=== PATIENT | female | born 1995 | race Caucasian/White ===

== ENCOUNTER 2021-08-22 13:58 | Inpatient (IN) | payer MEDICARE, OTHER ==
[2021-08-22] MEDS ORDERED: OXYTOCIN 10 UNIT/ML 1 ML VIAL IM PRN (14:57)
[2021-08-22] MEDS ORDERED: AMPICILLIN 2,000 MG in SODIUM CHLORIDE 0.9% 100 ML IVPB STA (14:57)
[2021-08-22] MEDS ORDERED: METHYLERGONOVINE 0.2 MG/ML 1 ML AMP IM PRN (14:57)
[2021-08-22] MEDS ORDERED: CARBOPROST TROMETHAMINE 250 MCG/ML 1 ML AMP IM PRN (14:57)
[2021-08-22] MEDS ORDERED: LIDOCAINE 0.5% (PF) 5 MG/ML (50 ML SDV) SQ PRN (14:57)
[2021-08-22] MEDS ORDERED: TERBUTALINE 1 MG/ML VIAL SQ PRN (14:57)
[2021-08-22] MEDS ORDERED: OXYTOCIN 30 UNITS/500 ML NS 30 UNIT in SALINE 1 500ML.BAG IV SCH (15:00)
[2021-08-22 15:10] LABS: Appearance,Urine Clear (Clear); Bilirubin,Urine Negative (Negative); Blood,Urine Negative (Negative); Color,Urine Yellow; Glucose,Urine (UA) Negative (Negative); Ketones,Urine Negative (Negative); Leukocyte Esterase,Urine Moderate (Negative); Mucus,Urine Rare /hpf; Nitrite,Urine Negative (Negative); PH, Urine 6.5 (5.0-8.0); Protein,Urine Negative (Negative); RBC,Urine 2 /hpf (0-5); Specific Gravity,Urine 1.011 (1.001-1.035); Squamous Epithelial Cell,Urine <1 /hpf (0-4); Urobilinogen,Urine <2.0 mg/dL (<2.0); WBC,Urine 10 /hpf (0-5)
[2021-08-22 15:18] LABS: Amphetamine Screen,Urine Detected (NotDetected); Barbiturate Screen,Urine Not Detected (NotDetected); Benzodiazepines Screen,Urine Not Detected (NotDetected); Cocaine Screen,Urine Not Detected (NotDetected); Methadone Screen, Urine Not Detected (NotDetected); Opiate Screen,Urine Not Detected (NotDetected); Oxycodone Screen, Urine Not Detected (NotDetected); Phencyclidine Screen,Urine Not Detected (NotDetected); Tricyclic Antidepressant,Urine Not Detected (NotDetected); Urn Cannabinoid Scrn Detected (NotDetected)
[2021-08-22 16:01] LABS: Anisocytosis Moderate; Basophils % (A) 0 %; Eosinophils # (A) 0.2 k/uL (0-0.7); Eosinophils % (A) 2 %; HCT 30.5 % (34.0-46.0); HGB 10.2 gm/dL (11.4-16.0); Lymphocytes # (A) 1.6 k/uL (1.0-4.8); Lymphocytes % (A) 18 %; MCH 28.4 pg (25.0-35.0); MCHC 33.3 g/dL (31.0-37.0); MCV 85.1 fL (80.0-100.0); Mean Platelet Volume 7.3; Microcytosis Slight; Monocytes # (A) 0.4 k/uL (0-1.0); Monocytes % (A) 5 %; Neutrophils # (A) 6.7 k/uL (1.3-7.7); Neutrophils % (A) 75 %; Platelet Count 287 k/uL (150-450); Poikilocytosis Slight; RBC 3.58 m/uL (3.80-5.40); RDW 21.9 % (11.5-15.5)
[2021-08-22] MEDS: LACTATED RINGERS 1,000 ML IV SCH ×2 (16:52→17:19)
[2021-08-22] MEDS ORDERED: ROPIVACAINE 5MG/ML 20ML VIAL ONE (17:19)
[2021-08-22] MEDS ORDERED: fentaNYL (PF) 50 MCG/ML 5 ML AMP ONE (17:19)
[2021-08-22] MEDS ORDERED: SODIUM CHLORIDE 0.9% 100 ML BAG ONE (17:19)
--- NOTE | 2021-08-22 17:25 | P.HPOB ---
History of Present Illness H&P Date: 08/22/21 Chief Complaint: Intrauterine at term: Active labor: Substance abuse Danay is a 26-year-old at 37 weeks gestation who ryes in active labor. She relates that she and having contractions last night and they continued every 10 minutes. She is a patient of Dr. Shearer who is a maternal medicine specialist out of the [facility] for her substance abuse. She is on Suboxone. She denies other illicit drugs or alcohol. However, she is positive for amphetamines, methamphetamines and THC. She relates that she had no specific problems with the other than her opioid issue and she has a Bartholin's gland that has been present for last 2 pregnancies that has been draining off and on throughout the . She relates that at time it was tried to be treated with a catheter but that it did not work. It is relatively painful now and swollen but not nearly as bad as has been and she is on 2 separate antibiotics but she does not know what the antibiotic's name are. Her tracing is reactive category 1. She is lena semi-irregular but she is making cervical change the last cervical check she was dilated to 7 cm at presentation she was dilated 6 cm. She has a bulging bag although she does relate that she is been leaking fluid and she did have positive amateur so is unclear how long she is actually been leaking fluid. She relates that she was supposed to have implant with her physician today but came here instead. It appears that her [facility] was late to start as she relates that she was earlier this year but had a miscarriage and then got and wasn't sure how far along she was and didn't seek care until approximately April. The pediatricians will be notified for delivery. Past medical history substance abuse Past surgical history cholecystectomy ALLERGIES none Social history assume for Suboxone use Family history is noncontributory Medications Suboxone On physical exam vital signs are stable and afebrile. Heart regular, lungs clear, extremities without pain. Grossly looking her abdomen she appears small for dates and I am waiting for medical records from her primary venipuncturist. She is dilated to 7 cm 90% effaced and -2 station. She is hopeful that she can get an epidural for analgesia. Intrauterine at 37 weeks per patient active labor Expect spontaneous vaginal delivery. With unknown group B strep status antibiotics are provided for group B strep prophylaxis Past Medical History Past Medical History: Asthma Additional Past Medical History / Comment(s): bartholian gland, restless leg s yndrome, anemia, durg use History of Any Multi-Drug Resistant Organisms: MRSA Date of last positivie culture/infection: 03/2021 MDRO Source:: neck Past Surgical History: Cholecystectomy Additional Past Surgical History / Comment(s): D&Cx2 Past Anesthesia/Blood Transfusion Reactions: No Reported Reaction Past Psychological History: No Psychological Hx Reported Smoking Status: Current every day smoker Past Alcohol Use History: None Reported Past Drug Use History: Marijuana, Prescription Drug Abuse - Past Family History Mother History Unknown: Yes Medications and Allergies Home Medications Medication Instructions Recorded Confirmed Type Buprenorphine HCl/Naloxone HCl 1 film PO DAILY 08/22/21 08/22/21 History [Suboxone 4 mg-1 mg Sl Film] Cephalexin [Keflex] 1 tab PO BID 08/22/21 08/22/21 History Gabapentin [Neurontin] 1 tab PO BID 08/22/21 08/22/21 History Iron 1 tab PO DAILY 08/22/21 08/22/21 History Ondansetron [Zofran] 1 tab PO DAILY 08/22/21 08/22/21 History Pnv No.95/Ferrous Fum/Folic AC 1 tab PO DAILY 08/22/21 08/22/21 History [ Multivitamin Tablet] Sulfamethox-Tmp 800-160Mg [Bactrim 1 tab PO BID 08/22/21 08/22/21 History DS 800-160 mg] Allergies Allergy/AdvReac Type Severity Reaction Status Date / Time No Known Allergies Allergy Verified 08/22/21 14:53 Exam Osteopathic Statement: *. No significant issues noted on an osteopathic structural exam other than those noted in the History and Physical/Consult. Vital Signs Temp Pulse Resp BP 08/22/21 15:19 97.4 F L 85 16 114/64 08/22/21 14:11 97.3 F L 85 16 114/64 Intake and Output 08/22/21 08/22/21 08/22/21 06:59 14:59 22:59 Other: Weight 68.039 kg 68.039 kg - OBG Physical Exam Breast: both: normal (no masses) Abdomen: bowel sounds normal, no diffuse tenderness, no bruit present, no guarding noted, no hepatomegaly, no splenomegaly, no mass Vulva: bartholin cyst noted. Vulva: both: normal Vagina: normal moisture, no discharge Cervix: no lesion, no discharge Uterus: normal size, normal contour Adnexa: both: normal Anus/Rectum: normal perianal skin, no rectal mass, no hemorrhoids, heme negative Results Result Diagrams: 08/22/21 15:49 Abnormal Lab Results - Last 24 Hours (Table) 08/22/21 08/22/21 08/22/21 Range/Units 13:50 13:50 15:49 RBC 3.58 L (3.80-5.40) m/uL Hgb 10.2 L (11.4-16.0) gm/dL Hct 30.5 L (34.0-46.0) % RDW 21.9 H (11.5-15.5) % Ur Leukocyte Esterase Moderate H (Negative) Urine WBC 10 H (0-5) /hpf Urine Mucus Rare H (None) /hpf Ur Amphetamines Screen Detected H (NotDetected) U Methamphetamines Scrn Detected H (NotDetected) U Marijuana (THC) Screen Detected H (NotDetected)
[2021-08-22] MEDS ORDERED: CITRIC ACID-SODIUM CITRATE 15 ML CUP PO ONE (18:06)
[2021-08-22] MEDS ORDERED: LACTATED RINGERS 1,000 ML IV ONE (18:06)
--- NOTE | 2021-08-22 18:17 | P.PN ---
Progress Note - Text Progress Note Date: 08/22/21 Madie's from retropubic medicine returned and she is positive for hepatitis C. She also relates that she has MRSA and throughout the records she is positive for methamphetamines and amphetamines. Had not done and a digital exam prior to this point as the nurses were doing exams, however I did make an attempt to do artificial rupture membranes as there was supposed to still be a membrane present. On exam immediately I recognized that there was something abnormal with the presentation with the presenting part still feeling firm but significantly anterior with soft tissue behind the presenting part posteriorly as this did not feel right and artificial membranes were not really able to be performed I suspected potential breech presentation so I did a bedside ultrasound and verified breech presentation. It is noted that the heart tones were low and what would ordinarily be considered a very normal position for vertex presentation. She is 8 cm dilated and we'll move forward with primary section. Risks/benefits/alternatives to this procedure were reviewed the patient in detail including but not limited to bleeding and infection, damage to bladder or bowel, vascular injuries, nerve injuries, ureteral injuries possible need further surgeries.
[2021-08-22] MEDS ORDERED: MIDAZOLAM 2 MG/2 ML VIAL ONE (18:18)
[2021-08-22] MEDS ORDERED: ONDANSETRON 4 MG/2 ML VIAL ONE (18:18)
[2021-08-22] MEDS ORDERED: OXYTOCIN 30 UNITS/500 ML NS BAG IV ONE (18:18)
[2021-08-22] MEDS ORDERED: KETOROLAC 15 MG/ML 1 ML VIAL ONE (18:18)
[2021-08-22] MEDS ORDERED: MORPHINE SULFATE (PF) 0.3 MG/0.3 ML SYR ONE (18:18)
[2021-08-22] MEDS ORDERED: AMPICILLIN 1,000 MG in SODIUM CHLORIDE 0.9% 50 ML IVPB SCH (19:00)
[2021-08-22] MEDS ORDERED: diphenhydrAMINE 25 MG CAP PO PRN (19:01)
[2021-08-22] MEDS ORDERED: NALOXONE 0.4 MG/ML 1 ML VIAL IV PRN (19:01)
[2021-08-22] MEDS ORDERED: diphenhydrAMINE 50 MG/ML 1 ML VIAL IVP PRN ×2 (19:01)
[2021-08-22] MEDS ORDERED: METOCLOPRAMIDE 5 MG/ML 2 ML VIAL IVP PRN (19:01)
[2021-08-22] MEDS ORDERED: diphenhydrAMINE 50 MG CAP PO PRN (19:01)
[2021-08-22] MEDS ORDERED: ZOLPIDEM 5 MG TAB PO PRN (19:01)
[2021-08-22] MEDS ORDERED: HYDROmorphone 0.5 MG/0.5 ML SYRINGE IVP PRN (19:11)
[2021-08-22] MEDS ORDERED: MEASLES-MUMPS-RUBELLA VACC/PF 12,500 UNIT/0.5 ML VIAL SQ ONE (19:11)
[2021-08-22] MEDS ORDERED: LACTATED RINGERS 1,000 ML IV SCH (19:15)
--- NOTE | 2021-08-22 19:49 | P.OP ---
Date of Procedure: 08/22/21 Preoperative Diagnosis: Intrauterine at term: Hepatitis see positive: Suboxone use: Breech presentation Postoperative Diagnosis: Same Procedure(s) Performed: Primary low transverse section Anesthesia: epidural Surgeon: Kevin Florez Clerical Assigner #1: Raegan Walden Estimated Blood Loss (ml): 900 IV fluids (ml): 700 Urine output (ml): 500 Pathology: other (Placenta) Condition: stable Disposition: floor Operative Findings: Female scores and weight are pending but mother and baby appear stable following delivery Description of Procedure: Danay was taken to the operating suite where a epidural anesthetic was found be adequate. She was prepped and draped in normal sterile fashion and placed in the dorsal supine position with leftward tilt. Initially a Pfannenstiel skin incision was made and carried through to the underlying layer fascia was second knife. Fascia was then nicked in the midline and this opening was extended laterally with Pearson scissors. Superior and inferior aspect of this incision were then grasped tented up and bluntly and sharply dissected off the rectus muscles. Rectus muscles were then divided midline and sharp dissection the peritoneum was performed. This opening was then extended superiorly and inferiorly with good visualization of both bowel bladder. Bladder blade was then placed and the bladder flap identified. It was entered sharply with Metzenbaum scissors and carried across face uterus. Bladder was then dissected out of the operative field. Knife was then used to incise the uterus and lower uterine segment. It was fully developed hemostat and then extended bluntly. Buttock was then easily delivered followed by the remainder the baby. Once baby was fully delivered mouth nares were bulb suctioned and the umbilical cord was clamped cut usual fashion. Nursery personnel was then present and did assume care. Placenta was then delivered intact Pitocin was added to the IV. Uterus was then exteriorized cleared of clots and debris and closed in 2 layers with 0 Vicryl suture. Once excellent hemostasis was obtained blood and debris was suctioned from the posterior cul-de-sac and the uterus was reinserted into the abdomen. Gutters were then cleared. Peritoneal layer was then reapproximated with 0 Vicryl suture. Fascial layer was closed with 0 Vicryl suture. Skin was then closed with 3-0 Vicryl subcuticularly. Sponge, lap, needle counts were all correct 2. Patient was then taken to the recovery room in stable and satisfactory condition.
[2021-08-22 20:48] LABS: ALT 32 U/L (4-34); AST 28 U/L (14-36); African American GFR (CKD) >90 (>60 ml/min/1.73 sqM); Albumin 2.6 g/dL (3.5-5.0); Alkaline Phosphatase 113 U/L (38-126); Anion Gap 6 mmol/L; Blood Urea Nitrogen 4 mg/dL (7-17); Calcium 8.5 mg/dL (8.4-10.2); Carbon Dioxide 18 mmol/L (22-30); Chloride 108 mmol/L (98-107); Glucose 87 mg/dL (74-99); Non-African American GFR(CKD) >90 (>60 ml/min/1.73 sqM); Potassium 3.5 mmol/L (3.5-5.1); Sodium 132 mmol/L (137-145); Total Bilirubin 0.2 mg/dL (0.2-1.3); Total Protein 5.5 g/dL (6.3-8.2)
[2021-08-22] MEDS ORDERED: CEPHALEXIN 500 MG CAP PO SCH (21:00)
[2021-08-22] MEDS ORDERED: SULFAMETHOX-TMP 800-160MG 1 EACH TAB PO SCH (21:00)
[2021-08-22] MEDS: SENNOSIDES-DOCUSATE SODIUM 1 EACH TAB PO SCH (21:10)
[2021-08-22 21:23] LABS: INR 0.9 (<1.2); Partial Thromboplastin Time 25.8 sec (22.0-30.0); Prothrombin Time 9.8 sec (9.0-12.0)
--- NOTE | 2021-08-22 22:26 | P.CONS ---
History of Present Illness - Reason for Consult Consult date: 08/22/21 - History of Present Illness The patient is a 26-year-old female postoperative day #0 status post section who is seen as a medicine consult. The patient has a past medical history of hepatitis C, HSV, polysubstance abuse including heroin with history of methadone use, currently on Suboxone. The patient reports that she is continuing to have 5 out of 10 pain at the surgical site at the time of interview. She denied any additional complaints. She reports that the last time she used any illicit substance was 6 months ago and the only substance she admits using currently at the Suboxone. She denied chest discomfort, fever, chills, cough, nausea, vomiting, diarrhea. The patient's laboratory evaluation was reviewed and was remarkable for hemoglobin of 10.2, sodium 132, CO2 18, BUN 4, creatinine 0.36, albumin 2.6, and urine toxicology positive for methamphetamines and marijuana. Review of systems: Pertinent positives and negatives as discussed in HPI, a complete review of systems was performed and all other systems are negative. Physical examination: General: non toxic, no distress, appears at stated age, overweight Derm: no unusual rashes/lesions no unusual ecchymoses, warm, dry Head: atraumatic, normocephalic, symmetric Eyes: EOMI, no lid lag, anicteric sclera, pupils equal round reactive to light ENT: Nose and ears atraumatic, no thrush, no pharyngeal erythema Neck: No thyromegaly, no cervical lymphadenopathy, trachea midline, supple Mouth: no lip lesion, mucus membranes moist Cardiovascular: S1S2 reg, no murmur, positive posterior tibial pulse bilateral, no edema, capillary refill less than 2 seconds Lungs: CTA bilateral, no rhonchi, no rales , no accessory muscle use Abdominal: soft, post-op abdomen w/ dressings in place, no guarding, no appreciable organomegaly Ext: no gross muscle atrophy, muscle strength 5 out of 5 in all 4 extremities grossly, no contractures, Neuro: CN II-XI grossly intact, light touch intact all 4 extremities, finger to nose within normal limits, Psych: Alert, oriented, appropriate affect Assessment/plan Chronic hepatitis C -Advised patient on the need to follow up as an outpatient with a patternmaker bench. -The patient reports that she previously had an appointment which she missed -Advised patient on newer therapies with high cure rates for hepatitis C Polysubstance abuse -Advised the patient on importance of cessation -The patient notes that she may have a friend bring her Suboxone into the hospital -Suboxone is not on the hospital formulary Hypoalbuminemia -Suspected due to poor nutritional status as patient's cognition studies are unremarkable -Thereby low suspicion for cirrhosis Status post section -No obvious contraindications noted with regards to opiates -Continue with morphine 4 mg every 4 hourly for now We appreciate this opportunity to be involved in this patient's care. We will follow the patient with you. For any further questions, please not hesitate to contact the [facility] inpatient team. Past Medical History Past Medical History: Asthma Additional Past Medical History / Comment(s): bartholian gland, restless leg syndrome, anemia, durg use History of Any Multi-Drug Resistant Organisms: MRSA Year Discovered:: 03/2021 MDRO Source:: neck Past Surgical History: Cholecystectomy Additional Past Surgical History / Comment(s): D&Cx2 Past Anesthesia/Blood Transfusion Reactions: No Reported Reaction Past Psychological History: No Psychological Hx Reported Smoking Status: Current every day smoker Past Alcohol Use History: None Reported Past Drug Use History: Marijuana, Prescription Drug Abuse - Past Family History Mother History Unknown: Yes Family Medical History: Coronary Artery Disease (CAD) Medications and Allergies Home Medications Medication Instructions Recorded Confirmed Type Buprenorphine HCl/Naloxone HCl 1 film PO DAILY 08/22/21 08/22/21 History [Suboxone 4 mg-1 mg Sl Film] Cephalexin [Keflex] 1 tab PO BID 08/22/21 08/22/21 History Gabapentin [Neurontin] 1 tab PO BID 08/22/21 08/22/21 History Iron 1 tab PO DAILY 08/22/21 08/22/21 History Ondansetron [Zofran] 1 tab PO DAILY 08/22/21 08/22/21 History Pnv No.95/Ferrous Fum/Folic AC 1 tab PO DAILY 08/22/21 08/22/21 History [ Multivitamin Tablet] Sulfamethox-Tmp 800-160Mg [Bactrim 1 tab PO BID 08/22/21 08/22/21 History DS 800-160 mg] Allergies Allergy/AdvReac Type Severity Reaction Status Date / Time No Known Allergies Allergy Verified 08/22/21 14:53 Physical Exam Vitals: Vital Signs Temp Pulse Resp BP Pulse Ox 08/22/21 21:05 96.0 F L 65 16 112/82 100 08/22/21 20:36 68 16 111/71 08/22/21 20:05 68 16 106/81 100 08/22/21 20:00 58 L 16 100 08/22/21 19:50 76 16 106/64 100 08/22/21 19:35 67 16 101/59 08/22/21 19:27 75 18 98/55 100 08/22/21 19:04 96.0 F L 78 18 96/54 97 08/22/21 15:19 97.4 F L 85 16 114/64 08/22/21 14:11 97.3 F L 85 16 114/64 Intake and Output 08/22/21 08/22/21 08/22/21 06:59 14:59 22:59 Output Total 400 Balance -400 Output: Urine 400 Other: Voiding Method Indwelling Catheter # Voids 1 Weight 68.039 kg 68.039 kg Results CBC & Chem 7: 08/22/21 15:49 08/22/21 18:03 Labs: Abnormal Lab Results - Last 24 Hours (Table) 08/22/21 08/22/21 08/22/21 Range/Units 13:50 13:50 15:49 RBC 3.58 L (3.80-5.40) m/uL Hgb 10.2 L (11.4-16.0) gm/dL Hct 30.5 L (34.0-46.0) % RDW 21.9 H (11.5-15.5) % Sodium (137-145) mmol/L Chloride (98-107) mmol/L Carbon Dioxide (22-30) mmol/L BUN (7-17) mg/dL Creatinine (0.52-1.04) mg/dL Total Protein (6.3-8.2) g/dL Albumin (3.5-5.0) g/dL Ur Leukocyte Esterase Moderate H (Negative) Urine WBC 10 H (0-5) /hpf Urine Mucus Rare H (None) /hpf Ur Amphetamines Screen Detected H (NotDetected) U Methamphetamines Scrn Detected H (NotDetected) U Marijuana (THC) Screen Detected H (NotDetected) 08/22/21 Range/Units 18:03 RBC (3.80-5.40) m/uL Hgb (11.4-16.0) gm/dL Hct (34.0-46.0) % RDW (11.5-15.5) % Sodium 132 L (137-145) mmol/L Chloride 108 H (98-107) mmol/L Carbon Dioxide 18 L (22-30) mmol/L BUN 4 L (7-17) mg/dL Creatinine 0.36 L (0.52-1.04) mg/dL Total Protein 5.5 L (6.3-8.2) g/dL Albumin 2.6 L (3.5-5.0) g/dL Ur Leukocyte Esterase (Negative) Urine WBC (0-5) /hpf Urine Mucus (None) /hpf Ur Amphetamines Screen (NotDetected) U Methamphetamines Scrn (NotDetected) U Marijuana (THC) Screen (NotDetected)
[2021-08-22] MEDS: MORPHINE SULFATE 4 MG/ML SYRINGE IVP PRN (23:11)
[2021-08-23] MEDS: LACTATED RINGERS 1,000 ML IV SCH ×2 (04:00→20:51)
[2021-08-23] MEDS: MORPHINE SULFATE 4 MG/ML SYRINGE IVP PRN ×2 (06:01→10:04)
[2021-08-23] MEDS: PANTOPRAZOLE 40 MG TABLET PO SCH (07:34)
[2021-08-23] MEDS: SULFAMETHOX-TMP 800-160MG 1 EACH TAB PO SCH ×2 (09:44→21:09)
[2021-08-23] MEDS: CEPHALEXIN 500 MG CAP PO SCH ×2 (09:44→21:09)
[2021-08-23] MEDS: SENNOSIDES-DOCUSATE SODIUM 1 EACH TAB PO SCH ×2 (10:45→21:09)
--- NOTE | 2021-08-23 11:06 | P.PNOBGPC ---
Subjective - Subjective Principal diagnosis: Postop day 1 Interval history: Danay is seen and evaluated. Overall she is doing well. She does have pain issues which would be expected with her chronic opioid use. Medicine is managing her chronic hepatitis C. She is going to talk to her friends see if they can bring her Suboxone into her so that once we're done with her IV pain medication she has her standard pain medication to take. This will need to be verified through pharmacy. Pharmacy is aware of her hospitalization and will and need for medication verification. All the questions are answered for her at this time. Her vital signs are stable and she is afebrile. Labs I believe are pending this morning. Patient reports: Reports appetite normal, Reports voiding normally, Reports pain well controlled, Reports ambulating normally : in NICU Objective - Vital Signs Latest vital signs: Vital Signs Temp Pulse Resp BP Pulse Ox 08/23/21 08:00 98 F 78 16 102/62 99 08/23/21 03:47 98.2 F 65 16 105/68 98 08/22/21 23:18 97.6 F 74 16 127/81 08/22/21 21:05 96.0 F L 65 16 112/82 100 08/22/21 20:36 68 16 111/71 08/22/21 20:05 68 16 106/81 100 08/22/21 20:00 58 L 16 100 08/22/21 19:50 76 16 106/64 100 08/22/21 19:35 67 16 101/59 08/22/21 19:27 75 18 98/55 100 08/22/21 19:04 96.0 F L 78 18 96/54 97 08/22/21 15:19 97.4 F L 85 16 114/64 08/22/21 14:11 97.3 F L 85 16 114/64 Intake and Output 08/22/21 08/23/21 08/23/21 22:59 06:59 14:59 Output Total 400 1700 Balance -400 -1700 Output: Urine 400 1700 Uretheral (Pierre) 1400 Other: Voiding Method Indwelling Catheter Indwelling Catheter # Voids 1 Weight 68.039 kg - Exam Lungs: bilateral: normal Chest: Normal S1, Normal S2 Extremities: Present: normal Abdomen: Present: normal appearance, soft. Absent: distention, tenderness Incision: Present: normal, dry, intact Uterus: Present: normal, firm - Labs Labs: Abnormal Lab Results - Last 24 Hours (Table) 08/22/21 08/22/21 08/22/21 Range/Units 13:50 13:50 15:49 RBC 3.58 L (3.80-5.40) m/uL Hgb 10.2 L (11.4-16.0) gm/dL Hct 30.5 L (34.0-46.0) % RDW 21.9 H (11.5-15.5) % Sodium (137-145) mmol/L Chloride (98-107) mmol/L Carbon Dioxide (22-30) mmol/L BUN (7-17) mg/dL Creatinine (0.52-1.04) mg/dL Total Protein (6.3-8.2) g/dL Albumin (3.5-5.0) g/dL Ur Leukocyte Esterase Moderate H (Negative) Urine WBC 10 H (0-5) /hpf Urine Mucus Rare H (None) /hpf Ur Amphetamines Screen Detected H (NotDetected) U Methamphetamines Scrn Detected H (NotDetected) U Marijuana (THC) Screen Detected H (NotDetected) 08/22/21 Range/Units 18:03 RBC (3.80-5.40) m/uL Hgb (11.4-16.0) gm/dL Hct (34.0-46.0) % RDW (11.5-15.5) % Sodium 132 L (137-145) mmol/L Chloride 108 H (98-107) mmol/L Carbon Dioxide 18 L (22-30) mmol/L BUN 4 L (7-17) mg/dL Creatinine 0.36 L (0.52-1.04) mg/dL Total Protein 5.5 L (6.3-8.2) g/dL Albumin 2.6 L (3.5-5.0) g/dL Ur Leukocyte Esterase (Negative) Urine WBC (0-5) /hpf Urine Mucus (None) /hpf Ur Amphetamines Screen (NotDetected) U Methamphetamines Scrn (NotDetected) U Marijuana (THC) Screen (NotDetected)
[2021-08-23 12:22] LABS: Anisocytosis Moderate; Basophils # (A) 0.1 k/uL (0-0.2); Basophils % (A) 1 %; Eosinophils # (A) 0.1 k/uL (0-0.7); Eosinophils % (A) 1 %; HCT 31.4 % (34.0-46.0); HGB 10.7 gm/dL (11.4-16.0); Lymphocytes % (A) 17 %; MCH 29.5 pg (25.0-35.0); MCHC 34.1 g/dL (31.0-37.0); MCV 86.4 fL (80.0-100.0); Mean Platelet Volume 8.5; Microcytosis Slight; Monocytes # (A) 0.4 k/uL (0-1.0); Monocytes % (A) 3 %; Neutrophils # (A) 8.9 k/uL (1.3-7.7); Neutrophils % (A) 77 %; Platelet Count 282 k/uL (150-450); RBC 3.64 m/uL (3.80-5.40); RDW 21.5 % (11.5-15.5); WBC 11.6 k/uL (3.8-10.6)
--- NOTE | 2021-08-23 14:17 | P.PN ---
Progress Note - Text 08/23/21 645am 26-year-old female status post with spinal Duramorph. Patient seen and evaluated for postop pain control, patient has a VAS of 2 with no complains of nausea vomiting or pruritus. Doing well
--- NOTE | 2021-08-23 15:13 | P.PN ---
Subjective Patient was seen by me today. She was sitting at the edge of that. Eating her lunch. Her mother is in the room. Nursing staff also in the room. Patient does not have any complaints at this time. Objective - Vital Signs Vital signs: Vital Signs Temp 98.1 F 08/23/21 12:00 Pulse 82 08/23/21 12:00 Resp 16 08/23/21 12:00 BP 101/71 08/23/21 12:00 Pulse Ox 97 08/23/21 12:00 Intake & Output 08/22/21 08/23/21 08/23/21 18:59 06:59 18:59 Output Total 2100 Balance -2100 Weight 68.039 kg Output: Urine 2100 Uretheral (Pierre) 1400 Other: Voiding Method Indwelling Catheter # Voids 1 - Exam General: The patient is awake and alert, in no distress Eye: there is normal conjunctiva bilaterally. Neck: The neck is supple, there is no JVD. Cardiovascular: Normal S1-S2, no S3-S4, no murmurs. Respiratory: Lungs clear to auscultation bilaterally Gastrointestinal: Abdomen is soft, nontender Musculoskeletal: There is no pedal edema. Neurological:. Speech is normal. Skin: Skin is warm and dry - Labs CBC & Chem 7: 08/23/21 11:09 08/22/21 18:03 Labs: Abnormal Lab Results - Last 24 Hours (Table) 08/22/21 08/22/21 08/22/21 Range/Units 13:50 15:49 18:03 WBC (3.8-10.6) k/uL RBC 3.58 L (3.80-5.40) m/uL Hgb 10.2 L (11.4-16.0) gm/dL Hct 30.5 L (34.0-46.0) % RDW 21.9 H (11.5-15.5) % Neutrophils # (1.3-7.7) k/uL Sodium 132 L (137-145) mmol/L Chloride 108 H (98-107) mmol/L Carbon Dioxide 18 L (22-30) mmol/L BUN 4 L (7-17) mg/dL Creatinine 0.36 L (0.52-1.04) mg/dL Total Protein 5.5 L (6.3-8.2) g/dL Albumin 2.6 L (3.5-5.0) g/dL Ur Amphetamines Screen Detected H (NotDetected) U Methamphetamines Scrn Detected H (NotDetected) U Marijuana (THC) Screen Detected H (NotDetected) 08/23/21 Range/Units 11:09 WBC 11.6 H (3.8-10.6) k/uL RBC 3.64 L (3.80-5.40) m/uL Hgb 10.7 L (11.4-16.0) gm/dL Hct 31.4 L (34.0-46.0) % RDW 21.5 H (11.5-15.5) % Neutrophils # 8.9 H (1.3-7.7) k/uL Sodium (137-145) mmol/L Chloride (98-107) mmol/L Carbon Dioxide (22-30) mmol/L BUN (7-17) mg/dL Creatinine (0.52-1.04) mg/dL Total Protein (6.3-8.2) g/dL Albumin (3.5-5.0) g/dL Ur Amphetamines Screen (NotDetected) U Methamphetamines Scrn (NotDetected) U Marijuana (THC) Screen (NotDetected) Assessment and Plan Assessment: This is a 26-year-old female status post section currently admitted under TRAVEL OCCUPATIONAL THERAPIST. Patient has a history of substance abuse and use Suboxone at home. She also has a history of chronic hepatitis C. She stable medically. I encouraged her to have one of her family members bring her Suboxone from home to be verified by pharmacy so that she can take it while in the hospital. Ideally we should avoid IV morphine in this patient. I would decrease dose to 1 mg every 4 hours as needed. Follow up outpatient for chronic hepatitis C. Counseled regarding substance abuse.
[2021-08-23] MEDS: ONDANSETRON 4 MG/2 ML VIAL IVP PRN (18:32)
[2021-08-23] MEDS: MORPHINE SULFATE 2 MG/ML SYRINGE IVP PRN (23:33)
[2021-08-24] MEDS: LACTATED RINGERS 1,000 ML IV SCH (04:32)
[2021-08-24] MEDS: ONDANSETRON 4 MG/2 ML VIAL IVP PRN (04:41)
[2021-08-24] MEDS: MORPHINE SULFATE 2 MG/ML SYRINGE IVP PRN (04:41)
[2021-08-24] MEDS: SENNOSIDES-DOCUSATE SODIUM 1 EACH TAB PO SCH ×2 (08:13→20:55)
[2021-08-24] MEDS: PANTOPRAZOLE 40 MG TABLET PO SCH (08:13)
[2021-08-24] MEDS: CEPHALEXIN 500 MG CAP PO SCH ×2 (09:31→20:55)
[2021-08-24] MEDS: SULFAMETHOX-TMP 800-160MG 1 EACH TAB PO SCH ×2 (09:31→20:55)
[2021-08-24] MEDS: ACETAMINOPHEN TAB 325 MG TAB PO PRN ×3 (11:42→23:36)
--- NOTE | 2021-08-24 14:08 | P.PN ---
Subjective Patient was seen and evaluated this morning. Pain is well controlled. No acute events overnight reported by nursing staff. Objective - Vital Signs Vital signs: Vital Signs Temp 98.4 F 08/24/21 07:45 Pulse 104 H 08/24/21 07:45 Resp 17 08/24/21 07:45 BP 114/72 08/24/21 07:45 Pulse Ox 98 08/23/21 16:00 Intake & Output 08/23/21 08/24/21 08/24/21 18:59 06:59 18:59 Output Total 1200 Balance -1200 Output: Urine 1200 Other: # Voids 1 2 - Exam General: The patient is awake and alert, in no distress Eye: there is normal conjunctiva bilaterally. Neck: The neck is supple, there is no JVD. Cardiovascular: Normal S1-S2, no S3-S4, no murmurs. Respiratory: Lungs clear to auscultation bilaterally Gastrointestinal: Abdomen is soft, nontender Musculoskeletal: There is no pedal edema. Neurological:. Speech is normal. Skin: Skin is warm and dry - Labs CBC & Chem 7: 08/23/21 11:09 08/22/21 18:03 Assessment and Plan Assessment: This is a 26-year-old female status post section currently admitted under ANSWERER. Patient has a history of substance abuse and use Suboxone at home. She also has a history of chronic hepatitis C. She stable medically. Patient to continue her home dose of Suboxone with Tylenol when necessary Follow up outpatient for chronic hepatitis C. Counseled regarding substance abuse.
[2021-08-25] MEDS: ACETAMINOPHEN TAB 325 MG TAB PO PRN ×3 (05:29→17:50)
[2021-08-25] MEDS: PANTOPRAZOLE 40 MG TABLET PO SCH (08:07)
[2021-08-25] MEDS: SENNOSIDES-DOCUSATE SODIUM 1 EACH TAB PO SCH (08:07)
[2021-08-25] MEDS: SIMETHICONE 80 MG CHEWABLE PO SCH ×4 (09:09→22:06)
[2021-08-25] MEDS: CEPHALEXIN 500 MG CAP PO SCH ×2 (09:10→21:05)
[2021-08-25] MEDS: SULFAMETHOX-TMP 800-160MG 1 EACH TAB PO SCH ×2 (09:10→21:05)
--- NOTE | 2021-08-25 13:12 | P.PNOBGPC ---
Subjective - Subjective Principal diagnosis: status post section postoperative day #3 Interval history: patient is complaining of pain more on the left side of her incision. She states she has not been passing flatus or bowel movement. She is tolerating regular diet. Patient reports: Reports appetite normal, Reports voiding normally, Reports pain poorly controlled, Reports ambulating normally Desha: other (in level I nursery) Objective - Vital Signs Latest vital signs: Vital Signs Temp Pulse Resp BP 08/25/21 08:15 98.3 F 101 H 17 104/66 08/25/21 00:00 98.0 F 100 16 115/79 08/24/21 15:35 98.3 F 97 17 110/70 - Exam Abdomen: Present: soft, distention, tenderness (positive bowel sounds 4mildly tender along the left upper incision but appears to be due to bowel distention) Incision: Present: normal, dry, intact. Absent: erythematous Uterus: Present: normal, firm. Absent: tenderness Assessment and Plan Assessment: status post section postoperative day #3 Plan: Will start on Mylicon and advised to continue ambulating. Will continue to monitor. Anticipate discharge home probably tomorrow.
[2021-08-25 16:24] VITALS: RESP 16
[2021-08-26] MEDS: SENNOSIDES-DOCUSATE SODIUM 1 EACH TAB PO SCH ×2 (06:36→10:38)
[2021-08-26] MEDS: SULFAMETHOX-TMP 800-160MG 1 EACH TAB PO SCH (10:37)
[2021-08-26] MEDS: CEPHALEXIN 500 MG CAP PO SCH (10:37)
[2021-08-26] MEDS: ACETAMINOPHEN TAB 325 MG TAB PO PRN (10:39)
[2021-08-26] MEDS: PANTOPRAZOLE 40 MG TABLET PO SCH (10:39)
[2021-08-26] MEDS: SIMETHICONE 80 MG CHEWABLE PO SCH ×2 (10:40→13:37)
[2021-08-26] MEDS ORDERED: bisacodyL 10 MG SUPP RECTAL STA (11:51)
--- NOTE | 2021-08-26 11:51 | P.DS ---
Providers Date of admission: 08/22/21 14:51 Expected date of discharge: 08/26/21 Attending physician: Kevin Florez Consults: 08/22/21 19:42 Consult Physician Urgent Consulting Provider: Hallie Kirk Consult Reason/Comments: Hepatitis c and suboxone use Do you want consulting provider notified?: Already Contacted Primary care physician: Stated None Hospital Course: This is a 26-year-old female 5 para 2 at 37-2/7 weeks who presented in active labor with breech presentation. She underwent a primary low transverse section on 08/22/2021 and delivered a viable female infant with scores of 8 at 1 minute and 9 at 5 minutes and infant weight of 5 lbs. 7 oz. Her postoperative course has been essentially uncomplicated. She has had some issues with gas pain. She was started on Mylicon and stool softeners. She has been passing flatus but no bowel movement yet. Her pain has been controlled with Suboxone and Tylenol. Lochia has been minimal. She is bottle feeding. Vital signs are stable. Abdomen is soft with some distention but positive bowel sounds 4. Incision is clean dry and intact with Steri-Strips in place. Extremities show negative Homans. Impression is status post primary low transverse section postoperative day #4. Plan is to discharge home today. She is encouraged to continue her Suboxone and Tylenol as recommended by medicine. She is advised to follow-up with her humanities and languages professor after discharge. She is advised to call the office if she has any further questions or concerns after discharge. She will be given a suppository today to help with bowel movement. Procedures: Primary low transverse section on 08/22/2021 Patient Condition at Discharge: Stable Plan - Discharge Summary New Discharge Prescriptions: New Acetaminophen Tab [Tylenol] 650 mg PO Q6HR PRN tab PRN Reason: Fever And/ Or Pain Continue Ondansetron [Zofran] 1 tab PO DAILY Iron 1 tab PO DAILY Gabapentin [Neurontin] 1 tab PO BID Buprenorphine HCl/Naloxone HCl [Suboxone 4 mg-1 mg Sl Film] 1 film PO DAILY Pnv No.95/Ferrous Fum/Folic AC [ Multivitamin Tablet] 1 tab PO DAILY Discontinued Sulfamethox-Tmp 800-160Mg [Bactrim DS 800-160 mg] 1 tab PO BID Cephalexin [Keflex] 1 tab PO BID Discharge Medication List Buprenorphine HCl/Naloxone HCl [Suboxone 4 mg-1 mg Sl Film] 1 film PO DAILY 08/22/21 [History] Gabapentin [Neurontin] 1 tab PO BID 08/22/21 [History] Iron 1 tab PO DAILY 08/22/21 [History] Ondansetron [Zofran] 1 tab PO DAILY 08/22/21 [History] Pnv No.95/Ferrous Fum/Folic AC [ Multivitamin Tablet] 1 tab PO DAILY 08/22/21 [History] Acetaminophen Tab [Tylenol] 650 mg PO Q6HR PRN tab 08/26/21 [Rx] Follow up Appointment(s)/Referral(s): Kevin Florez DO [Doctor of Osteopathic Medicine] - 10/02/21 3:00 pm (09-06-2021 at 9:00a.m. Patient advised to follow up with her humanities and languages professor after discharge) Activity/Diet/Wound Care/Special Instructions: Instructions 1. Do not begin any exercise program for 3 weeks. 2. Do not resume sexual relations for 3 weeks or longer if uncomfortable. 3. You may take tub baths or showers at any time. 4. You may use tampons if desired after 3 weeks. 5. Keep the area of episiotomy (stitches) clean and dry. 6. If you are not nursing, wear a good fitting, supportive bra during the day and limit fluid intake for at least 1 week to prevent breast engorgement. 7. Call the office, [phone], within the next week to make appointment for your 6 week checkup if it has not already been made. 8. Report any of the following occurrences to the doctor promptly: a. Heavy, excessive bleeding b. Chills, fever c. Burning or frequency of urination d. Pain or redness and breasts if nursing e. Increasing pain or swelling in episiotomy (stitches). In addition to the above instructions, the following additional should be followed: 1. No heavy lifting or straining (exercising) until after 6 week checkup. 2. Keep abdominal incision clean and dry: You may wear a dressing if more comfortable. 3. Make office appointment for 10 days after going home or as instructed by her doctor. Discharge Disposition: HOME SELF-CARE
[2021-08-26 16:47] VITALS: BP 114/72; PULSE 88; TEMP 97.6
== END 2021-08-26 19:28 | disposition home or self-care (01) | DRG 787 ==
LOC: FBPOP 13:58 → 4FBP 14:51
PROVIDERS: ADMIT Obstetrics & Gynecology; ATTEND Obstetrics & Gynecology
PROC: 10D00Z1 Extraction of Products of Conception, Low, Open Approach (ICD-10-PCS; principal; 2021-08-22 18:25)
DX: O99.324 Drug use complicating childbirth (principal); O98.42 Viral hepatitis complicating childbirth; Z16.24 Resistance to multiple antibiotics; O99.334 Smoking (tobacco) complicating childbirth; O99.284 Endocrine, nutritional and metabolic diseases complicating childbirth; O99.52 Diseases of the respiratory system complicating childbirth; O32.1XX0 Maternal care for breech presentation, not applicable or unspecified; O03.9 Complete or unspecified spontaneous abortion without complication; O36.5930 Maternal care for other known or suspected poor fetal growth, third trimester, not applicable or unspecified; B18.2 Chronic viral hepatitis C; E88.09 Other disorders of plasma-protein metabolism, not elsewhere classified; F12.10 Cannabis abuse, uncomplicated; F17.200 Nicotine dependence, unspecified, uncomplicated; Z37.0 Single live birth; Z3A.37 37 weeks gestation of pregnancy; Z82.49 Family history of ischemic heart disease and other diseases of the circulatory system; G25.81 Restless legs syndrome; J45.909 Unspecified asthma, uncomplicated; Z79.891 Long term (current) use of opiate analgesic
CPT/HCPCS: 59025; 80053; 80306; 81001; 85025; 85610; 85730; 86850; 86900; 86901; 88307; 99213

== ENCOUNTER 2022-09-11 13:27 | Inpatient (IN) | payer MEDICAID, OTHER ==
[2022-09-11] MEDS ORDERED: ONDANSETRON ODT 4 MG TAB PO STA (13:59)
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
[2022-09-11 18:56] LABS: Appearance,Urine Cloudy (Clear); Bacteria,Urine Many /hpf; Bilirubin,Urine Negative (Negative); Blood,Urine Trace (Negative); Color,Urine Yellow; Glucose,Urine (UA) Negative (Negative); Hyaline Casts,Urine 25 /lpf (0-2); Ketones,Urine 1+ (Negative); Leukocyte Esterase,Urine Large (Negative); Mucus,Urine Few /hpf; Nitrite,Urine Negative (Negative); PH, Urine 6.5 (5.0-8.0); Protein,Urine 1+ (Negative); RBC,Urine 6 /hpf (0-5); Specific Gravity,Urine 1.021 (1.001-1.035); Squamous Epithelial Cell,Urine 6 /hpf (0-4); WBC,Urine >182 /hpf (0-5)
[2022-09-11 18:58] LABS: Amphetamine Screen,Urine Detected (NotDetected); Cocaine Screen,Urine Not Detected (NotDetected); Opiate Screen,Urine Not Detected (NotDetected); Phencyclidine Screen,Urine Not Detected (NotDetected); Urn Cannabinoid Scrn Detected (NotDetected)
[2022-09-11 18:59] LABS: Barbiturate Screen,Urine Not Detected (NotDetected); Benzodiazepines Screen,Urine Not Detected (NotDetected); Methadone Screen, Urine Not Detected (NotDetected); Oxycodone Screen, Urine Not Detected (NotDetected); Tricyclic Antidepressant,Urine Not Detected (NotDetected)
[2022-09-12] MEDS ORDERED: MAG HYDROX/AL HYDROX/SIMETH 355 ML BOTTLE PO PRN (00:33)
[2022-09-12] MEDS ORDERED: ACETAMINOPHEN TAB 325 MG TAB PO PRN (00:33)
[2022-09-12] MEDS ORDERED: MAGNESIUM HYDROXIDE 2,400 MG/10 ML CUP PO PRN (00:33)
[2022-09-12] MEDS ORDERED: diphenhydrAMINE 25 MG CAP PO PRN (00:34)
[2022-09-12] MEDS ORDERED: ZIPRASIDONE 20 MG VIAL IM PRN (00:34)
[2022-09-12] MEDS ORDERED: diphenhydrAMINE 50 MG/ML 1 ML VIAL IM PRN (00:34)
[2022-09-12 00:39] VITALS: TEMP 97.1
[2022-09-12] MEDS: CEPHALEXIN 500 MG CAP PO SCH ×2 (01:30→14:44)
[2022-09-12] MEDS ORDERED: HALOPERIDOL LACTATE 5 MG/ML 1 ML VIAL IM PRN (14:06)
[2022-09-12] MEDS ORDERED: haloperidoL 5 MG TAB PO PRN (14:06)
[2022-09-12] MEDS ORDERED: ALBUTEROL INHALER 60 PUFF/8 GM INHALER (MHU) INHALATION PRN (14:37)
[2022-09-12] MEDS: QUEtiapine 25 MG TAB PO SCH (14:50)
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
[2022-09-12] MEDS: METHADONE 5 MG TAB PO SCH (16:27)
[2022-09-13] MEDS: MELATONIN 3 MG TABLET PO SCH ×2 (02:14→21:28)
[2022-09-13] MEDS: METHADONE 5 MG TAB PO SCH ×2 (02:14→08:31)
[2022-09-13] MEDS: QUEtiapine 25 MG TAB PO SCH ×3 (02:14→21:27)
[2022-09-13] MEDS: CEPHALEXIN 500 MG CAP PO SCH ×3 (02:14→21:24)
[2022-09-13 08:33] VITALS: BP 118/73; PULSE 92; RESP 18
[2022-09-13 09:06] LABS: ALT 26 U/L (4-34); AST 34 U/L (14-36); African American GFR (CKD) >90 (>60 ml/min/1.73 sqM); Albumin 4.5 g/dL (3.5-5.0); Alkaline Phosphatase 84 U/L (38-126); Anion Gap 9 mmol/L; Basophils % (A) 0 %; Blood Urea Nitrogen 13 mg/dL (7-17); Calcium 8.9 mg/dL (8.4-10.2); Carbon Dioxide 24 mmol/L (22-30); Chloride 105 mmol/L (98-107); Eosinophils # (A) 0.1 k/uL (0-0.7); Eosinophils % (A) 2 %; Glucose 96 mg/dL (74-99); HCT 39.9 % (34.0-46.0); HGB 13.5 gm/dL (11.4-16.0); Lymphocytes # (A) 1.9 k/uL (1.0-4.8); Lymphocytes % (A) 35 %; MCH 31.2 pg (25.0-35.0); MCHC 33.7 g/dL (31.0-37.0); MCV 92.6 fL (80.0-100.0); Mean Platelet Volume 7.7; Monocytes # (A) 0.3 k/uL (0-1.0); Monocytes % (A) 5 %; Neutrophils % (A) 56 %; Non-African American GFR(CKD) >90 (>60 ml/min/1.73 sqM); Platelet Count 299 k/uL (150-450); Potassium 4.1 mmol/L (3.5-5.1); RBC 4.31 m/uL (3.80-5.40); RDW 12.3 % (11.5-15.5); Sodium 138 mmol/L (137-145); Total Bilirubin 0.8 mg/dL (0.2-1.3); Total Protein 7.9 g/dL (6.3-8.2); WBC 5.4 k/uL (3.8-10.6)
--- NOTE | 2022-09-13 11:30 | P.PN ---
Progress Note - Text Progress Note Date: 09/13/22 Interval History: Patient was seen today for psychiatric follow-up. Patient was seen lying in her bed today sleeping and was awoken by advertising copywriter. She apparently was agitated and irritable this morning however, down on her own. She was up for meals and has been taking her medications. Patient claims that she is doing better today in terms of her agitation and also irritability. She was more directable during conversation and less impulsive. She states that she slept fairly last night. She has not been showing interest in going to groups. She claims that she is not interested in rehab at this time however does want to get back to her family in [place] and help with her on where to go. She described having a difficult labor in her last child and claims that "I almost because of the blood loss". She states that she wants to continue on with Suboxone after discharge. She was agreeable to have her methadone decreased. Appears to be more directable today and cooperative during the interview. At this time patient denies any suicidal or homical ideations, intent or plan. Patient denies any auditory, visual hallucinations and denies any paranoia or delusions. Patient denies any side effects from the medications and has been compliant with meds. Mental Status Exam: General Appearance: Patient appears to be then, multiple tattoos, improving appearance, stated age is alert, less irritable. Patient appears to have improving hygiene and grooming. Behavior: Patient is seated. More cooperative today. Less irritable. Speech: Patient's speech is fluent and nonpressured. Mood/Affect: Patient reports their mood is proving mildly, affect is congruent Suicidality/Homicidality: Patient denies having any homicidal ideation intent or plan. Denies any suicidal ideations intent or plan Perceptions: Patient denies any visual hallucinations and denies any auditory hallucinations Though content/process: [place], poverty of content. Focused on her stressors including her new and also wanting to get back to her children. Memory and concentration: AOX3, grossly intact for the purposes of this session. Judgment and insight: Improving mildly IMPRESSIONS: Mood disorder NOS Trauma related stress disorder methamphetamine use disorder severe cannabis use disorder opioid use disorder, severe dependence nicotine dependence Plan: -Patient continues to meet criteria for inpatient psychiatric admission for symptom stabilization and safety. Patient has [not] signed [adult voluntary form and] [medication consent] and was placed in patient's chart. -Medications: []seroquel 25 mg bid for aggression/mood stabilization. spoke with patient about methadone and patient states that she is not interested in getting into a MAT program to continue on with methadone and would rather seek out her old doctor to resume suboxone. will decrease methadone with plan to taper off. -When necessary Benadryl and Haldol for agitation/aggression. -awaiitng painting trades worker consultation. will appreciate recommendations on new -NRT - [nicotine patch] -SW on board for discharge planning. Encouraged the patient to participate in milieu. likely discharge tomorrow.
[2022-09-13 18:01] LABS: Chol/HDL Ratio 2.85 Ratio; LDL Cholesterol,Calculated 81.5 mg/dL (0.0-131.0); VLDL Calculation 17.88 mg/dL (5.00-40.00)
[2022-09-13] MEDS: METHADONE 10 MG TAB PO SCH (21:28)
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
[2022-09-14] MEDS: METHADONE 10 MG TAB PO SCH (09:03)
[2022-09-14] MEDS: CEPHALEXIN 500 MG CAP PO SCH (09:03)
[2022-09-14] MEDS: QUEtiapine 25 MG TAB PO SCH (09:03)
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
== END 2022-09-14 17:35 | disposition home or self-care (01) | DRG 885 ==
LOC: EC 13:27 → 3MHU 09-12 00:11
PROVIDERS: ADMIT Psychiatry & Neurology Psychiatry; ATTEND Psychiatry & Neurology Psychiatry
DX: F39 Unspecified mood [affective] disorder (principal); F11.23 Opioid dependence with withdrawal; N39.0 Urinary tract infection, site not specified; F12.20 Cannabis dependence, uncomplicated; F15.90 Other stimulant use, unspecified, uncomplicated; F17.210 Nicotine dependence, cigarettes, uncomplicated; F22 Delusional disorders; F32.9 Major depressive disorder, single episode, unspecified; F41.9 Anxiety disorder, unspecified; F43.9 Reaction to severe stress, unspecified; G25.81 Restless legs syndrome; G47.00 Insomnia, unspecified; J45.909 Unspecified asthma, uncomplicated; Z79.51 Long term (current) use of inhaled steroids; Z79.899 Other long term (current) drug therapy; Z20.822 Contact with and (suspected) exposure to COVID-19
CPT/HCPCS: 70450; 70486; 72125; 76801; 80053; 80061; 80306; 81001; 81025; 82075; 83036; 84439; 84443; 84702; 85025; 87077; 87086; 87186; 87635; 93005; 99285

== ENCOUNTER 2022-11-01 17:17 | Emergency (ER) | payer OTHER ==
[2022-11-01 17:41] VITALS: BP 130/80; PULSE 110; TEMP 98
--- NOTE | 2022-11-01 19:01 | ED ---
General Adult HPI - General Chief complaint: Weakness Stated complaint: STI/STD test Time Seen by Provider: 11/01/22 18:36 Source: patient Mode of arrival: ambulatory Limitations: no limitations - History of Present Illness Initial comments: Dictation was produced using Pikh[employer] dictation software. please excuse any grammatical, word or spelling errors. Chief Complaint: 27-year-old female presents emergency department for nausea and fatigue History of Present Illness: 27-year-old female she is a poor historian. States that she is here today for several days of nausea and fatigue. Patient denies any other complaints at this time. Denies any medical problems. Denies any medications on a regular basis. The ROS documented in this emergency department record has been reviewed and confirmed by me. Those systems with pertinent positive or negative responses have been documented in the HPI. All other systems are other negative and/or noncontributory. PHYSICAL EXAM: General Impression: Alert and oriented x3, not in acute distress HEENT: Normocephalic atraumatic, extra-ocular movements intact, pupils equal and reactive to light bilaterally, mucous membranes moist. Cardiovascular: Heart regular rate and rhythm Chest: Able to complete full sentences, no retractions, no tachypnea Abdomen: abdomen soft, non-tender, non-distended, no organomegaly Musculoskeletal: Pulses present and equal in all extremities, no peripheral edema Motor: no focal deficits noted Neurological: CN II-XII grossly intact, no focal motor or sensory deficits noted Skin: Intact with no visualized rashes Psych: Normal affect and mood ED course: 27-year-old well-appearing female presents emergency department for several days of nausea and fatigue. Vital signs upon arrival are within acceptable limits. Nursing notes and chart review was performed My EKG interpretation: Ventricular rate 99, sinus rhythm, WV interval 119, QRS 72, QTC 395. No WV prolongation, no QTC prolongation, no ST or T-wave changes noted. Overall, this EKG is unremarkable Laboratory evaluation obtained. CBC unremarkable. Metabolic panel is negative. Urine test is positive. Patient has 15 white blood cells. Still to follow-up with [facility]. She told to start taking vitamins. Patient given antibiotics for white blood cells in the urine. Patient's nausea and fatigue is likely related. Ultrasound OB was considered however patient having any pelvic complaints. Parents are antibiotics was considered but patient has stable UTI. - Related Data Home Medications Medication Instructions Recorded Confirmed Budesonide/Formoterol Fumarate 2 puff INHALATION RT-BID PRN 09/11/22 09/12/22 [Symbicort 160-4.5 Mcg Inhaler] Previous Rx's Medication Instructions Recorded Cephalexin [Keflex] 500 mg PO Q12HR 7 Days #14 cap 09/11/22 Vit No.179/Iron/Folic 1 each PO DAILY #30 tab 09/11/22 [ Tablet] Acetaminophen Tab [Tylenol] 650 mg PO Q4HR PRN tab 09/14/22 Albuterol Sulfate [Proair Hfa] 2 puff INHALATION RT-QID PRN #1 09/14/22 each Cephalexin [Keflex] 500 mg PO BID 3 Days cap 09/14/22 Melatonin 6 mg PO HS 30 Days tab 09/14/22 QUEtiapine [SEROquel] 25 mg PO HS 30 Days tab 09/14/22 Cephalexin [Keflex] 500 mg PO Q12HR 7 Days #14 cap 11/01/22 Allergies Allergy/AdvReac Type Severity Reaction Status Date / Time No Known Allergies Allergy Verified 09/12/22 00:17 Review of Systems ROS Statement: Those systems with pertinent positive or pertinent negative responses have been documented in the HPI. ROS Other: All systems not noted in ROS Statement are negative. Past Medical History Past Medical History: Asthma Additional Past Medical History / Comment(s): bartholian gland, restless leg syndrome, anemia, durg use History of Any Multi-Drug Resistant Organisms: MRSA Date of last positivie culture/infection: 03/2021 MDRO Source:: neck Past Surgical History: Cholecystectomy Additional Past Surgical History / Comment(s): D&Cx2 Past Anesthesia/Blood Transfusion Reactions: No Reported Reaction Past Psychological History: No Psychological Hx Reported Smoking Status: Current every day smoker Past Alcohol Use History: None Reported Past Drug Use History: Marijuana, Prescription Drug Abuse - Past Family History Mother History Unknown: Yes Family Medical History: Coronary Artery Disease (CAD) General Exam Limitations: no limitations Course Vital Signs 11/01/22 17:37 Temperature 98 F Pulse Rate 110 H Respiratory 20 Rate Blood Pressure 130/80 O2 Sat by Pulse 98 Oximetry Medical Decision Making - Lab Data Result diagrams: 11/01/22 19:02 11/01/22 19:02 Lab Results 01/11/01/22 11/01/22 Range/Units 19:02 19:02 19:02 WBC 6.0 (3.8-10.6) k/uL RBC 3.79 L (3.80-5.40) m/uL Hgb 11.6 (11.4-16.0) gm/dL Hct 32.9 L (34.0-46.0) % MCV 86.9 D (80.0-100.0) fL MCH 30.7 (25.0-35.0) pg MCHC 35.4 (31.0-37.0) g/dL RDW 12.5 (11.5-15.5) % Plt Count 269 (150-450) k/uL MPV 7.5 Neutrophils % 55 % Lymphocytes % 36 % Monocytes % 5 % Eosinophils % 2 % Basophils % 0 % Neutrophils # 3.3 (1.3-7.7) k/uL Lymphocytes # 2.2 (1.0-4.8) k/uL Monocytes # 0.3 (0-1.0) k/uL Eosinophils # 0.1 (0-0.7) k/uL Basophils # 0.0 (0-0.2) k/uL Hyperchromasia Slight Sodium (137-145) mmol/L Potassium (3.5-5.1) mmol/L Chloride (98-107) mmol/L Carbon Dioxide (22-30) mmol/L Anion Gap mmol/L BUN (7-17) mg/dL Creatinine (0.52-1.04) mg/dL Est GFR (CKD-EPI)AfAm (>60 ml/min/1.73 sqM) Est GFR (CKD-EPI)NonAf (>60 ml/min/1.73 sqM) Glucose (74-99) mg/dL Calcium (8.4-10.2) mg/dL Urine Color Yellow Urine Appearance Clear (Clear) Urine pH 6.0 (5.0-8.0) Ur Specific [place] 1.019 (1.001-1.035) Urine Protein Trace H (Negative) Urine Glucose (UA) Negative (Negative) Urine Ketones Negative (Negative) Urine Blood Negative (Negative) Urine Nitrite Negative (Negative) Urine Bilirubin Negative (Negative) Urine Urobilinogen 2.0 (<2.0) mg/dL Ur Leukocyte Esterase Moderate H (Negative) Urine RBC 3 (0-5) /hpf Urine WBC 15 H (0-5) /hpf Ur Squamous Epith Cells 4 (0-4) /hpf Urine Bacteria Rare H (None) /hpf Urine Mucus Few H (None) /hpf Urine HCG, Qual Detected (Not Detectd) 11/01/22 Range/Units 19:02 WBC (3.8-10.6) k/uL RBC (3.80-5.40) m/uL Hgb (11.4-16.0) gm/dL Hct (34.0-46.0) % MCV (80.0-100.0) fL MCH (25.0-35.0) pg MCHC (31.0-37.0) g/dL RDW (11.5-15.5) % Plt Count (150-450) k/uL MPV Neutrophils % % Lymphocytes % % Monocytes % % Eosinophils % % Basophils % % Neutrophils # (1.3-7.7) k/uL Lymphocytes # (1.0-4.8) k/uL Monocytes # (0-1.0) k/uL Eosinophils # (0-0.7) k/uL Basophils # (0-0.2) k/uL Hyperchromasia Sodium 137 (137-145) mmol/L Potassium 3.6 (3.5-5.1) mmol/L Chloride 106 (98-107) mmol/L Carbon Dioxide 25 (22-30) mmol/L Anion Gap 6 mmol/L BUN 8 (7-17) mg/dL Creatinine 0.68 (0.52-1.04) mg/dL Est GFR (CKD-EPI)AfAm >90 (>60 ml/min/1.73 sqM) Est GFR (CKD-EPI)NonAf >90 (>60 ml/min/1.73 sqM) Glucose 103 H (74-99) mg/dL Calcium 8.6 (8.4-10.2) mg/dL Urine Color Urine Appearance (Clear) Urine pH (5.0-8.0) Ur Specific [place] (1.001-1.035) Urine Protein (Negative) Urine Glucose (UA) (Negative) Urine Ketones (Negative) Urine Blood (Negative) Urine Nitrite (Negative) Urine Bilirubin (Negative) Urine Urobilinogen (<2.0) mg/dL Ur Leukocyte Esterase (Negative) Urine RBC (0-5) /hpf Urine WBC (0-5) /hpf Ur Squamous Epith Cells (0-4) /hpf Urine Bacteria (None) /hpf Urine Mucus (None) /hpf Urine HCG, Qual (Not Detectd) Disposition Clinical Impression: UTI (urinary tract infection), Disposition: HOME SELF-CARE Condition: Good Instructions (If sedation given, give patient instructions): Nausea and Vomiting in (ED), Urinary Tract Infection in Women (DC) Prescriptions: Cephalexin [Keflex] 500 mg PO Q12HR 7 Days #14 cap Is patient prescribed a controlled substance at d/c from ED?: No Referrals: Marvin Benites MD [Primary Care Provider] - 1-2 days Time of Disposition: 20:53
[2022-11-01 19:19] LABS: Appearance,Urine Clear (Clear); Bacteria,Urine Rare /hpf; Bilirubin,Urine Negative (Negative); Blood,Urine Negative (Negative); Color,Urine Yellow; Glucose,Urine (UA) Negative (Negative); Ketones,Urine Negative (Negative); Leukocyte Esterase,Urine Moderate (Negative); Mucus,Urine Few /hpf; Nitrite,Urine Negative (Negative); Protein,Urine Trace (Negative); RBC,Urine 3 /hpf (0-5); Specific Gravity,Urine 1.019 (1.001-1.035); Squamous Epithelial Cell,Urine 4 /hpf (0-4); WBC,Urine 15 /hpf (0-5)
[2022-11-01 19:45] LABS: Basophils % (A) 0 %; Eosinophils # (A) 0.1 k/uL (0-0.7); Eosinophils % (A) 2 %; HCT 32.9 % (34.0-46.0); HGB 11.6 gm/dL (11.4-16.0); Hyperchromasia Slight; Lymphocytes # (A) 2.2 k/uL (1.0-4.8); Lymphocytes % (A) 36 %; MCH 30.7 pg (25.0-35.0); MCHC 35.4 g/dL (31.0-37.0); Mean Platelet Volume 7.5; Monocytes # (A) 0.3 k/uL (0-1.0); Monocytes % (A) 5 %; Neutrophils # (A) 3.3 k/uL (1.3-7.7); Neutrophils % (A) 55 %; Platelet Count 269 k/uL (150-450); RBC 3.79 m/uL (3.80-5.40); RDW 12.5 % (11.5-15.5)
[2022-11-01 19:48] LABS: MCV 86.9 fL (80.0-100.0)
[2022-11-01 19:55] LABS: African American GFR (CKD) >90 (>60 ml/min/1.73 sqM); Anion Gap 6 mmol/L; Blood Urea Nitrogen 8 mg/dL (7-17); Calcium 8.6 mg/dL (8.4-10.2); Carbon Dioxide 25 mmol/L (22-30); Chloride 106 mmol/L (98-107); Glucose 103 mg/dL (74-99); Non-African American GFR(CKD) >90 (>60 ml/min/1.73 sqM); Potassium 3.6 mmol/L (3.5-5.1); Sodium 137 mmol/L (137-145)
[2022-11-01 21:00] VITALS: RESP 16
== END 2022-11-01 21:09 | disposition home or self-care (01) ==
LOC: EC 17:17
DX: O23.40 Unspecified infection of urinary tract in pregnancy, unspecified trimester (principal); O99.519 Diseases of the respiratory system complicating pregnancy, unspecified trimester; O99.330 Smoking (tobacco) complicating pregnancy, unspecified trimester; N39.0 Urinary tract infection, site not specified; J45.909 Unspecified asthma, uncomplicated; F17.200 Nicotine dependence, unspecified, uncomplicated; F12.90 Cannabis use, unspecified, uncomplicated; Z90.49 Acquired absence of other specified parts of digestive tract; Z20.822 Contact with and (suspected) exposure to COVID-19
CPT/HCPCS: 36415; 80048; 81001; 81025; 85025; 87636; 93005; 99285

== ENCOUNTER 2024-03-27 13:01 | Emergency (ER) | payer OTHER ==
[2024-03-27 13:13] VITALS: TEMP 99
--- NOTE | 2024-03-27 14:47 | ED ---
General Adult HPI - General Chief complaint: Overdose Stated complaint: Overdose Time Seen by Provider: 03/27/24 13:24 Source: patient, police, EMS Mode of arrival: EMS Limitations: no limitations - History of Present Illness Initial comments: Patient is a 28-year-old female presenting to the emergency department with concern for overdose. Patient is arguing with police officers on arrival. Patient reevaluated shortly after and is slightly drowsy. Patient does admit to drug use, opiates. Patient does not recall being unresponsive. Patient has no complaints otherwise. Patient denies any injury. - Related Data Home Medications Medication Instructions Recorded Confirmed No Known Home Medications 03/27/24 03/27/24 Allergies Allergy/AdvReac Type Severity Reaction Status Date / Time No Known Allergies Allergy Verified 03/27/24 15:12 Review of Systems ROS Statement: Those systems with pertinent positive or pertinent negative responses have been documented in the HPI. ROS Other: All systems not noted in ROS Statement are negative. Constitutional: Denies: fever Eyes: Denies: eye pain ENT: Denies: ear pain Respiratory: Denies: dyspnea Cardiovascular: Denies: chest pain Neurological: Denies: headache, weakness Past Medical History Past Medical History: Asthma Additional Past Medical History / Comment(s): bartholian gland, restless leg syndrome, anemia, drug use History of Any Multi-Drug Resistant Organisms: None Reported, MRSA Date of last positivie culture/infection: 03/2021 MDRO Source:: neck Past Surgical History: Section, Cholecystectomy Additional Past Surgical History / Comment(s): D&Cx2 Past Anesthesia/Blood Transfusion Reactions: No Reported Reaction Past Psychological History: No Psychological Hx Reported Smoking Status: Current every day smoker Past Alcohol Use History: Unable to Obtain Past Drug Use History: Marijuana, Opiates, Prescription Drug Abuse - Past Family History Mother History Unknown: Yes Family Medical History: Coronary Artery Disease (CAD) General Exam Limitations: no limitations General appearance: in no apparent distress Head exam: Present: atraumatic Eye exam: Present: normal appearance, PERRL, EOMI ENT exam: Present: normal oropharynx Neck exam: Present: normal inspection. Absent: meningismus Respiratory exam: Present: normal lung sounds bilaterally Cardiovascular Exam: Present: regular rate, normal rhythm GI/Abdominal exam: Present: soft. Absent: tenderness Extremities exam: Present: normal inspection. Absent: pedal edema, calf tenderness Neurological exam: Present: other (Drowsy but arousable to voice). Absent: motor sensory deficit Expanded Neurological exam: Present: protecting the airway Patient oriented to: Present: person, place Cranial nerves: EOM's Intact: Normal Motor strength exam: RUE: 5, LUE: 5, RLE: 5, LLE: 5 Eye Response: (3) open to voice Motor Response: (6) obeys commands Verbal Response: (4) confused conversation Psychiatric exam: Present: normal affect, normal mood Skin exam: Present: normal color Course Vital Signs 03/27/24 03/27/24 03/27/24 13:07 13:43 15:15 Temperature 99.0 F Pulse Rate 124 H 100 100 Respiratory 20 16 16 Rate Blood Pressure 132/87 O2 Sat by Pulse 100 100 96 Oximetry Medical Decision Making - Medical Decision Making Was pt. sent in by a medical professional or institution (, PA, BUSINESS TRAINER, urgent care, hospital, or longterm...) When possible be specific @ -[No] Did you speak to anyone other than the patient for history (EMS, parent, family, police, friend...)? What history was obtained from this source @ -EMS and police officers help provide history as patient is drowsy Did you review nursing and triage notes (agree or disagree)? Why? @ -[I reviewed and agree with nursing and triage notes] Were old charts reviewed (outside hosp., previous admission, EMS record, old EKG , old radiological studies, urgent care reports/EKG's, longterm records)? Report findings @ -[No old charts were reviewed] Differential Diagnosis (chest pain, altered mental status, abdominal pain women, abdominal pain men, vaginal bleeding, weakness, fever, dyspnea, syncope, headache, dizziness, GI bleed, back pain, seizure, CVA, palpatations, mental health, musculoskeletal)? @ -Differential Altered Mental Status: Hypoglycemia, DKA, hypercapnia, ETOH, overdose, CO poisoning, trauma, myxedema coma, HTN encephalopathy, infection, encephalitis, psychosis, intercranial hemorrhage, hepatic encephalopathy, meningitis, CVA, this is not meant to be an all-inclusive list EKG interpreted by me (3pts min.). @ -[As above] X-rays interpreted by me (1pt min.). @ -[None done] CT interpreted by me (1pt min.). @ -[None done] U/S interpreted by me (1pt. min.). @ -[None done] What testing was considered but not performed or refused? (CT, X-rays, U/S, labs)? Why? @ -[None] What meds were considered but not given or refused? Why? @ -[None] Did you discuss the management of the patient with other professionals (professionals i.e. Dr., PA, BUSINESS TRAINER, lab, RT, psych nurse, vp digital marketing social media and crm, buckle strap puncher, teacher, weapons electrical engineering officer, window caser)? Give summary @ -[No] Was smoking cessation discussed for >3mins.? @ -[No] Was critical care preformed (if so, how long)? @ -[No] Were there social determinants of health that impacted care today? How? (Homelessness, low income, unemployed, alcoholism, drug addiction, transportation, low edu. Level, literacy, decrease access to med. care, detention, rehab)? @ -[No] Was there de-escalation of care discussed even if they declined (Discuss DNR or withdrawal of care, Hospice)? DNR status @ -[No] What co-morbidities impacted this encounter? (DM, HTN, Smoking, COPD, CAD, Cancer, CVA, ARF, Chemo, Hep., AIDS, mental health diagnosis, sleep apnea, morbid obesity)? @ -[None] Was patient admitted / discharged? Hospital course, mention meds given and route, prescriptions, significant lab abnormalities, going to OR and other pertinent info. @ -Patient presents with overdose following Narcan. Patient was drowsy on multiple reevaluations. Patient at this time is improved and ambulatory. Patient is alert and oriented x 3. No suicidal thoughts. Patient will be discharged Undiagnosed new problem with uncertain prognosis? @ -[No] Drug Therapy requiring intensive monitoring for toxicity (Heparin, Nitro, Insulin, Cardizem)? @ -[No] Were any procedures done? @ -[No] Diagnosis/symptom? @ -Overdose Acute, or Chronic, or Acute on Chronic? @ -Acute Uncomplicated (without systemic symptoms) or Complicated (systemic symptoms)? @ -[default] Side effects of treatment? @ -[No] Exacerbation, Progression, or Severe Exacerbation? @ -[No] Poses a threat to life or bodily function? How? (Chest pain, [place], [place], pneumonia, PE, COPD, DKA, ARF, appy, cholecystitis, CVA, Diverticulitis, Homicidal, Suicidal, threat to staff... and all critical care pts) @ -Threat to life through accidental overdose Disposition Clinical Impression: Accidental drug overdose Disposition: HOME SELF-CARE Condition: Stable Instructions (If sedation given, give patient instructions): Adult Overdose (ED) Additional Instructions: Discontinue all drug use. Please do follow-up with primary care physician in the next day or 2 for recheck. Return for drowsiness, worsening symptoms or other concerns. Is patient prescribed a controlled substance at d/c from ED?: No Referrals: Marvin Benites MD [Primary Care Provider] - 1-2 days Time of Disposition: 17:20
[2024-03-27 17:39] VITALS: BP 116/78; PULSE 98; RESP 18
== END 2024-03-27 17:38 | disposition home or self-care (01) ==
LOC: EC 13:01
DX: T40.601A Poisoning by unspecified narcotics, accidental (unintentional), initial encounter (principal); F17.200 Nicotine dependence, unspecified, uncomplicated; F12.90 Cannabis use, unspecified, uncomplicated
CPT/HCPCS: 99284

== ENCOUNTER 2024-04-25 21:56 | Emergency (ER) | payer OTHER ==
[2024-04-25 22:28] VITALS: TEMP 98.3
--- NOTE | 2024-04-25 23:51 | ED ---
General Adult HPI - General Chief complaint: Skin/Abscess/Foreign Body Stated complaint: Abscess on head Time Seen by Provider: 04/25/24 23:02 Source: patient, RN notes reviewed Mode of arrival: ambulatory Limitations: no limitations - History of Present Illness Initial comments: 29-year-old female presents to the emergency department for evaluation of sore on her head. She states that she has a history of hidradenitis suppurativa. She states that she frequently gets lesions on her skin. She follows outpatient for this. She has not been on antibiotics recently. She denies fever, chills. Patient was reluctant to provide history as she had just told the nurse. - Related Data Previous Rx's Medication Instructions Recorded Cephalexin [Keflex] 500 mg PO Q6HR #40 cap 04/26/24 Sulfamethox-Tmp 800-160Mg [Bactrim 1 each PO Q12HR #20 tab 04/26/24 Ds] Allergies Allergy/AdvReac Type Severity Reaction Status Date / Time No Known Allergies Allergy Verified 04/25/24 22:28 Review of Systems ROS Statement: Those systems with pertinent positive or pertinent negative responses have been documented in the HPI. ROS Other: All systems not noted in ROS Statement are negative. Past Medical History Past Medical History: Asthma Additional Past Medical History / Comment(s): bartholian gland, restless leg syndrome, anemia, drug use History of Any Multi-Drug Resistant Organisms: None Reported, MRSA Date of last positivie culture/infection: 03/2021 MDRO Source:: neck Past Surgical History: Section, Cholecystectomy Additional Past Surgical History / Comment(s): D&Cx2 Past Anesthesia/Blood Transfusion Reactions: No Reported Reaction Past Psychological History: No Psychological Hx Reported Smoking Status: Current every day smoker Past Alcohol Use History: Unable to Obtain Past Drug Use History: Marijuana, Opiates, Prescription Drug Abuse - Past Family History Mother History Unknown: Yes Family Medical History: Coronary Artery Disease (CAD) General Exam Limitations: no limitations General appearance: alert, in no apparent distress Head exam: Present: atraumatic, normocephalic, normal inspection Eye exam: Present: normal appearance, PERRL, EOMI. Absent: scleral icterus, conjunctival injection, periorbital swelling ENT exam: Present: normal exam, mucous membranes moist Respiratory exam: Present: normal lung sounds bilaterally. Absent: respiratory distress, wheezes, rales, rhonchi, stridor Cardiovascular Exam: Present: regular rate, normal rhythm, normal heart sounds. Absent: systolic murmur, diastolic murmur, rubs, gallop, clicks Neurological exam: Present: alert, oriented X3 Psychiatric exam: Present: normal affect, normal mood Skin exam: Present: warm, dry, other Course Vital Signs 04/25/24 04/26/24 22:23 00:13 Temperature 98.3 F Pulse Rate 105 H 98 Respiratory 16 18 Rate Blood Pressure 103/72 106/78 O2 Sat by Pulse 100 100 Oximetry Medical Decision Making - Medical Decision Making Was pt. sent in by a medical professional or institution (, TIFF, POULTRY SCALDER, urgent care, hospital, or long term...) When possible be specific @ -No Did you speak to anyone other than the patient for history (EMS, parent, family, police, friend...)? What history was obtained from this source @ -No Did you review nursing and triage notes (agree or disagree)? Why? @ -I reviewed and agree with nursing and triage notes Were old charts reviewed (outside hosp., previous admission, EMS record, old EKG, old radiological studies, urgent care reports/EKG's, long term records)? Report findings @ -No old charts were reviewed Differential Diagnosis (chest pain, altered mental status, abdominal pain women, abdominal pain men, vaginal bleeding, weakness, fever, dyspnea, syncope, headache, dizziness, GI bleed, back pain, seizure, CVA, palpatations, mental health, musculoskeletal)? @ -Cellulitis, abscess, HS, this list is not all inclusive EKG interpreted by me (3pts min.). @ -None X-rays interpreted by me (1pt min.). @ -None done CT interpreted by me (1pt min.). @ -None done U/S interpreted by me (1pt. min.). @ -None done What testing was considered but not performed or refused? (CT, X-rays, U/S, labs)? Why? @ -None What meds were considered but not given or refused? Why? @ -None Did you discuss the management of the patient with other professionals (professionals i.e. TIFF Fitch, POULTRY SCALDER, lab, RT, psych nurse, social service technician, dredge pipe operator, teacher, policy officer, manager case)? Give summary @ -No Was smoking cessation discussed for >3mins.? @ -No Was critical care preformed (if so, how long)? @ -No Were there social determinants of health that impacted care today? How? (Paty elessness, low income, unemployed, alcoholism, drug addiction, transportation, low edu. Level, literacy, decrease access to med. care, longterm, rehab)? @ -No Was there de-escalation of care discussed even if they declined (Discuss DNR or withdrawal of care, Hospice)? DNR status @ -No What co-morbidities impacted this encounter? (DM, HTN, Smoking, COPD, CAD, Cancer, CVA, ARF, Chemo, Hep., AIDS, mental health diagnosis, sleep apnea, morbid obesity)? @ -None Was patient admitted / discharged? Hospital course, mention meds given and route, prescriptions, significant lab abnormalities, going to OR and other pertinent info. @ -Discharge. Patient presented to the emergency department for evaluation of sore on her forehead. She would not provide thorough history. Patient has erythematous lesion on right side of forehead. She will be treated with outpatient antibiotics. Patient stable at time of discharge. Case discussed with Dr. Blackman. Undiagnosed new problem with uncertain prognosis? @ -No Drug Therapy requiring intensive monitoring for toxicity (Heparin, Nitro, Insulin, Cardizem)? @ -No Were any procedures done? @ -No Diagnosis/symptom? @ -Skin infection Acute, or Chronic, or Acute on Chronic? @ -acute Uncomplicated (without systemic symptoms) or Complicated (systemic symptoms)? @ -uncomplicated Side effects of treatment? @ -No Exacerbation, Progression, or Severe Exacerbation? @ -No Poses a threat to life or bodily function? How? (Chest pain, [place], [place], pneumonia, PE, COPD, DKA, ARF, appy, cholecystitis, CVA, Diverticulitis, Homicidal, Suicidal, threat to staff... and all critical care pts) @ -No Disposition Clinical Impression: Hidradenitis suppurativa, Cellulitis Disposition: HOME SELF-CARE Condition: Stable Instructions (If sedation given, give patient instructions): Cellulitis (ED) Additional Instructions: Please follow up with your primary care provider. Return to the emergency department for new or worsening symptoms. Prescriptions: Sulfamethox-Tmp 800-160Mg [Bactrim Ds] 1 each PO Q12HR #20 tab Cephalexin [Keflex] 500 mg PO Q6HR #40 cap Is patient prescribed a controlled substance at d/c from ED?: No Referrals: Marvin Benites MD [Primary Care Provider] - 1-2 days
[2024-04-26 00:14] VITALS: BP 106/78; PULSE 98; RESP 18
== END 2024-04-26 00:17 | disposition home or self-care (01) ==
LOC: EC 21:56
DX: L73.2 Hidradenitis suppurativa (principal); L03.211 Cellulitis of face; F17.200 Nicotine dependence, unspecified, uncomplicated
CPT/HCPCS: 99282

== ENCOUNTER 2024-06-05 21:34 | Emergency (ER) | payer OTHER ==
[2024-06-05] MEDS ORDERED: ONDANSETRON 4 MG/2 ML VIAL ONE (22:12)
[2024-06-05] MEDS ORDERED: cloNIDine 0.3 MG/24HR PATCH TRANSDERM ONE (22:45)
[2024-06-05] MEDS ORDERED: SODIUM CHLORIDE 0.9% 1,000 ML BAG ONE (22:45)
[2024-06-06] MEDS ORDERED: DICYCLOMINE 20 MG TAB ONE (00:20)
== END 2024-06-06 06:55 | disposition home or self-care (01) ==
LOC: EC 21:34
DX: F10.239 Alcohol dependence with withdrawal, unspecified (principal)
CPT/HCPCS: 93005; 96361; 96374; 99284

== ENCOUNTER 2024-06-11 22:57 | Emergency (ER) | payer OTHER ==
--- NOTE | 2024-06-11 23:47 | ED ---
General Adult HPI - General Chief complaint: Skin/Abscess/Foreign Body Stated complaint: Detox Time Seen by Provider: 06/11/24 23:02 Source: patient, RN notes reviewed Mode of arrival: ambulatory Limitations: no limitations - History of Present Illness Initial comments: This is a 29-year-old female who presents to the emergency department for problems with hidradenitis suppurativa as well as needing help with detox. Patient states that she is going to [facility] in [place], [place] tomorrow morning and they have transportation set up. However, she presents with her business process manager who is concerned about her going back out onto the streets and using heroin again if she is not monitored closely. They are hoping she can stay here until she leaves for detox tomorrow morning so there is a smooth transition and so she stays clean. Additionally, she has multiple wounds on her forehead due to at hs. Was most recently on antibiotics 2 weeks ago. Believes that this was Bactrim and Keflex, and states that it was fairly effective, however she was unable to finish them as they were left behind where she had been staying temporarily. - Related Data Previous Rx's Medication Instructions Recorded Cephalexin [Keflex] 500 mg PO Q6HR #40 cap 04/26/24 Sulfamethox-Tmp 800-160Mg [Bactrim 1 each PO Q12HR #20 tab 04/26/24 Ds] Cephalexin [Keflex] 500 mg PO Q6HR 7 Days #28 cap 06/12/24 Cephalexin [Keflex] 500 mg PO Q6HR 7 Days #28 cap 06/12/24 Sulfamethox-Tmp 800-160Mg [Bactrim 1 tab PO Q12HR 7 Days #14 tab 06/12/24 DS 800-160 mg] Sulfamethox-Tmp 800-160Mg [Bactrim 1 tab PO Q12HR 7 Days #14 tab 06/12/24 DS 800-160 mg] Allergies Allergy/AdvReac Type Severity Reaction Status Date / Time No Known Allergies Allergy Verified 06/11/24 23:01 Review of Systems ROS Statement: Those systems with pertinent positive or pertinent negative responses have been documented in the HPI. ROS Other: All systems not noted in ROS Statement are negative. Past Medical History Past Medical History: Asthma Additional Past Medical History / Comment(s): bartholian gland, restless leg syndrome, anemia, drug use History of Any Multi-Drug Resistant Organisms: None Reported, MRSA Date of last positivie culture/infection: 03/2021 MDRO Source:: neck Past Surgical History: Section, Cholecystectomy Additional Past Surgical History / Comment(s): D&Cx2 Past Anesthesia/Blood Transfusion Reactions: No Reported Reaction Past Psychological History: No Psychological Hx Reported Smoking Status: Current every day smoker Past Alcohol Use History: Unable to Obtain Past Drug Use History: Heroin, IV Drug Use, Marijuana, Opiates, Prescription Drug Abuse - Past Family History Mother History Unknown: Yes Family Medical History: Coronary Artery Disease (CAD) General Exam Limitations: no limitations General appearance: alert, in no apparent distress Head exam: Present: other (Multiple wounds on the forehead that are scabbed over) Respiratory exam: Present: normal lung sounds bilaterally. Absent: respiratory distress, wheezes, rales, rhonchi, stridor Cardiovascular Exam: Present: regular rate, normal rhythm, normal heart sounds. Absent: systolic murmur, diastolic murmur, rubs, gallop, clicks Neurological exam: Present: alert, oriented X3, CN II-XII intact Psychiatric exam: Present: normal affect, normal mood Course Vital Signs 06/11/24 22:58 Temperature 98 F Pulse Rate 97 Respiratory 18 Rate Blood Pressure 115/77 O2 Sat by Pulse 98 Oximetry Medical Decision Making - Medical Decision Making This is a 29-year-old female who presents to the emergency department for wounds on her forehead and needing help with detox. Was pt. sent in by a medical professional or institution? @ -No Did you speak to anyone other than the patient for history? @ -Her business process manager discussed concerns for the patient going back out onto the street and using heroin again. Did you review nursing and triage notes? @ -Yes, and I agree, it is accurate with regards to the patient's symptoms. Were old charts reviewed? @ -No Differential Diagnosis? @ -Differential facial wounds: Abrasions, cellulitis, abscess, burn, this is not meant to be an all-inclusive list. EKG interpreted by me (3pts min.)? @ -Not obtained X-rays interpreted by me (1pt min.)? @ -Not obtained CT interpreted by me (1pt min.)? @ -Not obtained U/S interpreted by me (1pt. min.)? @ -Not obtained What testing was considered but not performed? (CT, X-rays, U/S, labs)? Why? @ -None What meds were considered but not given? Why? @ -None Did you discuss the management of the patient with other professionals? @ -No Did you reconcile home meds? @ -No Was smoking cessation discussed for >3mins.? @ -No Was critical care preformed (if so, how long)? @ -No Were there social determinants of health that impacted care today? How? ( Homelessness, low income, unemployed, alcoholism, drug addiction, transportation, low edu. Level, literacy, decrease access to med. care, residential, rehab)? @ -Homelessness, which is exposing the patient to drugs, and part of the reason she was in the emergency department today, so she had a place to stay until she went to rehab. Was there de-escalation of care discussed even if they declined? (Discuss DNR or withdrawal of care, Hospice)? @ -No What co-morbidities impacted this encounter? (DM, HTN, Smoking, COPD, CAD, Cancer, CVA, Hep., AIDS, mental health diagnosis, sleep apnea, morbid obesity)? @ -Drug addiction, hidradenitis suppurativa Was patient admitted / discharged? @ -Discharged. We did obtain baseline lab work which was unremarkable. She was given a dose of Bactrim and Keflex in the emergency department. She was also given a prescription for a 7-day course of these medications given that they were effective. Bacitracin cream provided as well. She was given food and allowed to rest in the emergency department until the room was needed, and she was advised that she could remain in the waiting room until the morning when [facility] could pick her up. Patient was in agreement with this plan. Case discussed with ED attending Dr. Coulter. Return precautions reviewed in depth, the patient is instructed to return to the emergency department with any new, worsening, or concerning symptoms. Patient verbalized understanding. Undiagnosed new problem with uncertain prognosis? @ -None Drug Therapy requiring intensive monitoring for toxicity (Heparin, Nitro, Insulin, Cardizem)? @ -None Were any procedures done? @ -None Diagnosis/symptom? @ -Hidradenitis suppurativa Acute, or Chronic, or Acute on Chronic? @ -Chronic Uncomplicated (without systemic symptoms) or Complicated (systemic symptoms)? @ -Uncomplicated Side effects of treatment? @ -None Exacerbation, Progression, or Severe Exacerbation] @ -Exacerbation Poses a threat to life or bodily function? @ -No Diagnosis/symptom? @ -Drug addiction Acute, or Chronic, or Acute on Chronic? @ -Chronic Uncomplicated (without systemic symptoms) or Complicated (systemic symptoms)? @ -Complicated Side effects of treatment? @ -None Exacerbation, Progression, or Severe Exacerbation] @ -Improving Poses a threat to life or bodily function? @ -Yes, poses risk for overdose and - Lab Data Result diagrams: 06/12/24 00:30 06/12/24 00:30 Lab Results 06/12/24 06/12/24 06/12/24 Range/Units : 00:30 00:30 WBC 5.2 (3.8-10.6) k/uL RBC 4.10 (3.80-5.40) m/uL Hgb 12.0 (11.4-16.0) gm/dL Hct 36.6 (34.0-46.0) % MCV 89.4 (80.0-100.0) fL MCH 29.2 (25.0-35.0) pg MCHC 32.7 (31.0-37.0) g/dL RDW 12.9 (11.5-15.5) % Plt Count 326 (150-450) k/uL MPV 7.6 Neutrophils % 47 % Lymphocytes % 39 % Monocytes % 5 % Eosinophils % 6 % Basophils % 1 % Neutrophils # 2.4 (1.3-7.7) k/uL Lymphocytes # 2.0 (1.0-4.8) k/uL Monocytes # 0.3 (0-1.0) k/uL Eosinophils # 0.3 (0-0.7) k/uL Basophils # 0.1 (0-0.2) k/uL Sodium 136 L (137-145) mmol/L Potassium 4.3 (3.5-5.1) mmol/L Chloride 106 (98-107) mmol/L Carbon Dioxide 21 L (22-30) mmol/L Anion Gap 9 mmol/L BUN 14 (7-17) mg/dL Creatinine 0.73 (0.52-1.04) mg/dL Est GFR (CKD-EPI)AfAm >90 (>60 ml/min/1.73 sqM) Est GFR (CKD-EPI)NonAf >90 (>60 ml/min/1.73 sqM) Glucose 82 (74-99) mg/dL Plasma Lactic Acid Stuart 1.7 (0.7-2.0) mmol/L Calcium 9.3 (8.4-10.2) mg/dL Total Bilirubin 0.8 (0.2-1.3) mg/dL AST 34 (14-36) U/L ALT 19 (4-34) U/L Alkaline Phosphatase 86 (38-126) U/L C-Reactive Protein <0.5 (<1.0) mg/dL Total Protein 7.5 (6.3-8.2) g/dL Albumin 4.3 (3.5-5.0) g/dL Disposition Clinical Impression: Hidradenitis suppurativa, Substance abuse, Desire for detoxification Disposition: HOME SELF-CARE Instructions (If sedation given, give patient instructions): Hidradenitis Suppurativa (ED) Additional Instructions: Return to the emergency department with any new, worsening, or concerning symptoms. Take both antibiotics as prescribed for 7 days. You can apply the bacitracin ointment to the affected areas as well. Prescriptions: Sulfamethox-Tmp 800-160Mg [Bactrim DS 800-160 mg] 1 tab PO Q12HR 7 Days #14 tab Sulfamethox-Tmp 800-160Mg [Bactrim DS 800-160 mg] 1 tab PO Q12HR 7 Days #14 tab Cephalexin [Keflex] 500 mg PO Q6HR 7 Days #28 cap Cephalexin [Keflex] 500 mg PO Q6HR 7 Days #28 cap Is patient prescribed a controlled substance at d/c from ED?: No Referrals: Marvin Benites MD [Primary Care Provider] - 1-2 days
[2024-06-12 00:55] LABS: Basophils # (A) 0.1 k/uL (0-0.2); Basophils % (A) 1 %; Eosinophils # (A) 0.3 k/uL (0-0.7); Eosinophils % (A) 6 %; HCT 36.6 % (34.0-46.0); Lymphocytes % (A) 39 %; MCH 29.2 pg (25.0-35.0); MCHC 32.7 g/dL (31.0-37.0); MCV 89.4 fL (80.0-100.0); Mean Platelet Volume 7.6; Monocytes # (A) 0.3 k/uL (0-1.0); Monocytes % (A) 5 %; Neutrophils # (A) 2.4 k/uL (1.3-7.7); Neutrophils % (A) 47 %; Platelet Count 326 k/uL (150-450); RDW 12.9 % (11.5-15.5); WBC 5.2 k/uL (3.8-10.6)
[2024-06-12 01:14] LABS: ALT 19 U/L (4-34); AST 34 U/L (14-36); African American GFR (CKD) >90 (>60 ml/min/1.73 sqM); Albumin 4.3 g/dL (3.5-5.0); Alkaline Phosphatase 86 U/L (38-126); Anion Gap 9 mmol/L; Blood Urea Nitrogen 14 mg/dL (7-17); Calcium 9.3 mg/dL (8.4-10.2); Carbon Dioxide 21 mmol/L (22-30); Chloride 106 mmol/L (98-107); Glucose 82 mg/dL (74-99); Non-African American GFR(CKD) >90 (>60 ml/min/1.73 sqM); Sodium 136 mmol/L (137-145); Total Bilirubin 0.8 mg/dL (0.2-1.3); Total Protein 7.5 g/dL (6.3-8.2)
[2024-06-12 01:22] LABS: Potassium 4.3 mmol/L (3.5-5.1)
[2024-06-12 01:51] LABS: C Reactive Protein <0.5 mg/dL (<1.0)
[2024-06-12] MEDS: CEPHALEXIN 500 MG CAP PO STA (02:21)
[2024-06-12] MEDS: SULFAMETHOX-TMP 800-160MG 1 EACH TAB PO STA (02:21)
[2024-06-12] MEDS: BACITRACIN ZINC 500 UNIT/GM OINT 28.4 GM TUBE TOPICAL ONE (02:22)
[2024-06-12] MEDS: CEPHALEXIN 500MG STARTER PACK 4 CAP BTL PO STA (02:22)
[2024-06-12] MEDS: SULFAMETH-TMP DS STARTER PACK 2 TAB BTL PO STA (02:27)
[2024-06-12 05:14] VITALS: BP 116/64; PULSE 85; RESP 16; TEMP 98.1
== END 2024-06-12 05:29 | disposition home or self-care (01) ==
LOC: EC 22:57
CPT/HCPCS: 36415; 80053; 83605; 85025; 86140; 99283

== ENCOUNTER 2024-06-12 08:16 | Emergency (ER) | payer OTHER ==
--- NOTE | 2024-06-12 09:04 | ED ---
Psych HPI - General Source: patient, RN notes reviewed Mode of arrival: ambulatory <Ana María Bridges - Last Filed: 06/12/24 09:03> - General Source: RN notes reviewed, old records reviewed Mode of arrival: ambulatory Limitations: no limitations - History of Present Illness MD Complaint: feels depressed -: days(s) Associated Psychiatric Symptoms: none History of same: Yes Quality: constant Improves With: none Worsens With: none Associated Symptoms: denies other symptoms Treatments Prior to Arrival: placed on mental health hold <Randall Head - Last Filed: 06/20/24 02:14> - General Chief Complaint: Psychiatric Symptoms Stated Complaint: mental health Time Seen by Provider: 06/12/24 09:03 - History of Present Illness Initial Comments: Currently 29-year-old female presented to ER with a chief complaint of heroin overdose. Patient was released from hospital this morning and was on her way to [facility] for rehabilitation. Caregiver ran into a gas station to grab something when he came out he found the patient unconscious with blue lips. Patient decided to "shoot up" 1 more time before rehab. 2 doses of Narcan were administered. [facility] refused intake until patient was medically cleared. (Ana María Bridges) This is a 29-year-old female to the ER for psychiatric evaluation presents today for evaluation of psychiatric illness and possible intoxication and attempting to go to outside facility for sober living (Randall Head) - Related Data Home Medications Medication Instructions Recorded Confirmed Cephalexin [Keflex] 500 mg PO DIRECTED 06/12/24 06/12/24 Sulfamethox-Tmp 800-160Mg [Bactrim 1 tab PO DIRECTED 06/12/24 06/12/24 DS 800-160 mg] Allergies Allergy/AdvReac Type Severity Reaction Status Date / Time No Known Allergies Allergy Verified 06/12/24 10:54 Review of Systems ROS Other: All systems not noted in ROS Statement are negative. <Ana María Bridges - Last Filed: 06/12/24 09:03> ROS Other: All systems not noted in ROS Statement are negative. <Randall Head - Last Filed: 06/20/24 02:14> ROS Statement: Those systems with pertinent positive or pertinent negative responses have been documented in the HPI. Past Medical History Past Medical History: Asthma Additional Past Medical History / Comment(s): bartholian gland, restless leg syndrome, anemia, drug use History of Any Multi-Drug Resistant Organisms: None Reported, MRSA Date of last positivie culture/infection: 03/2021 MDRO Source:: neck Past Surgical History: Section, Cholecystectomy Additional Past Surgical History / Comment(s): D&Cx2 Past Anesthesia/Blood Transfusion Reactions: No Reported Reaction Past Psychological History: No Psychological Hx Reported Smoking Status: Current every day smoker Past Alcohol Use History: Unable to Obtain Past Drug Use History: Heroin, IV Drug Use, Marijuana, Opiates, Prescription Drug Abuse - Past Family History Mother History Unknown: Yes Family Medical History: Coronary Artery Disease (CAD) <Ana María Bridges - Last Filed: 06/12/24 09:03> General Exam Limitations: no limitations <Ana María Bridges - Last Filed: 06/12/24 09:03> General appearance: alert, in no apparent distress Head exam: Present: atraumatic, normocephalic, normal inspection Eye exam: Present: normal appearance, PERRL, EOMI. Absent: scleral icterus, conjunctival injection, periorbital swelling ENT exam: Present: normal exam, mucous membranes moist Neck exam: Present: normal inspection. Absent: tenderness, meningismus, lymphadenopathy Respiratory exam: Present: normal lung sounds bilaterally. Absent: respiratory distress, wheezes, rales, rhonchi, stridor Cardiovascular Exam: Present: regular rate, normal rhythm, normal heart sounds. Absent: systolic murmur, diastolic murmur, rubs, gallop, clicks GI/Abdominal exam: Present: soft, normal bowel sounds. Absent: distended, tenderness, guarding, rebound, rigid Extremities exam: Present: normal inspection, full ROM, normal capillary refill. Absent: tenderness, pedal edema, joint swelling, calf tenderness Back exam: Present: normal inspection Neurological exam: Present: alert, oriented X3, CN II-XII intact Psychiatric exam: Present: normal affect, normal mood Skin exam: Present: warm, dry, intact, normal color. Absent: rash <Randall Head - Last Filed: 06/20/24 02:14> - General Exam Comments Initial Comments: Visual Physical Exam Vital signs reviewed General: Well-appearing, nontoxic, no acute distress. Head: Normocephalic, atraumatic Eyes: PERRLA, EOMI ENT: Airway patent Chest: Nonlabored breathing Skin: No visual rash, normal skin tone Neuro: Alert and oriented 3 Musculoskeletal: No gross abnormalities (Ana María Bridges) Course <Randall Head - Last Filed: 06/20/24 02:14> Vital Signs 06/12/24 06/12/24 08:18 12:13 Temperature 98.2 F 98.0 F Pulse Rate 95 92 Respiratory 16 18 Rate Blood Pressure 124/81 124/76 O2 Sat by Pulse 99 97 Oximetry - Reevaluation(s) Reevaluation #1: 06/12/24 11:50 Medical records reviewed (Randall Head) Reevaluation #2: 06/12/24 11:50 Symptoms unchanged (Randall Head) Reevaluation #3: 06/12/24 11:50 Patient informed of results and questions answered (Randall Head) Reevaluation #4: Was pt. sent in by a medical professional or institution (, PA, DIRECTOR OF CLINICAL SERVICES, urgent care, hospital, or fpc...) When possible be specific @ -no Did you speak to anyone other than the patient for history (EMS, parent, family, police, friend...)? What history was obtained from this source @ -no Did you review nursing and triage notes (agree or disagree)? Why? @ -agree Are old charts reviewed (outside hosp., previous admission, EMS record, old EKG, old radiological studies, urgent care reports/EKG's, fpc records)? Report findings @ -yes Differential Diagnosis (chest pain, altered mental status, abdominal pain women, abdominal pain men, vaginal bleeding, weakness, fever, dyspnea, syncope, headache, dizziness, GI bleed, back pain, seizure, CVA, palpatations, mental health, musculoskeletal)? @ -prior EKG interpreted by me (3pts min.). @ -no X-rays interpreted by me (1pt min.). @ -no CT interpreted by me (1pt min.). @ -no U/S interpreted by me (1pt. min.). @ -no What testing was considered but not performed or refused? (CT, X-rays, U/S, labs)? Why? @ -none What meds were considered but not given or refused? Why? @ -none Did you discuss the management of the patient with other professionals (professionals i.e. , PA, DIRECTOR OF CLINICAL SERVICES, lab, RT, psych nurse, social media project manager, ore miner, teacher, sheriff officer, director of casework)? Give summary @ -no Was smoking cessation discussed for >3mins.? @ -no Was critical care preformed (if so, how long)? @ -no Were there social determinants of health that impacted care today? How? (Homelessness, low income, unemployed, alcoholism, drug addiction, transportation, low edu. Level, literacy, decrease access to med. care, skilled nursing, rehab)? @ -none Was there de-escalation of care discussed even if they declined (Discuss DNR or withdrawal of care, Hospice)? DNR status @ -no What co-morbidities impacted this encounter? (DM, HTN, Smoking, COPD, CAD, Cancer, CVA, ARF, Chemo, Hep., AIDS, mental health diagnosis, sleep apnea, morbid obesity)? @ -none Was patient admitted / discharged? Hospital course, mention meds given and route, prescriptions, significant lab abnormalities, going to OR and other pertinent info. @ - 29 female to ER for evaluation patient can be discharged home Discharge Undiagnosed new problem with uncertain prognosis? @ -no Drug Therapy requiring intensive monitoring for toxicity (Heparin, Nitro, Insulin, Cardizem)? @ -no Were any procedures done? @ -no Diagnosis/symptom? @ -Heroin overdose Acute, or Chronic, or Acute on Chronic? @ -Acute Uncomplicated (without systemic symptoms) or Complicated (systemic symptoms)? @ -Complicated Side effects of treatment? @ -no Exacerbation, Progression, or Severe Exacerbation? @ -exacerbation Poses a threat to life or bodily function? How? (Chest pain, [place], [place], pneumonia, PE, COPD, DKA, ARF, appy, cholecystitis, CVA, Diverticulitis, Homicidal, Suicidal, threat to staff... and all critical care pts) @ -yes overdose (Randall Head) Medical Decision Making <Ana María Bridges - Last Filed: 06/12/24 09:03> <Randall Head - Last Filed: 06/20/24 02:14> - Medical Decision Making I performed the quick note portion of this chart. Electronically signed by Ana María Bridges PA-C (Ana María Bridges) 29 female to ER for evaluation patient can be discharged home (Piotr Head) Disposition <Ana María Bridges - Last Filed: 06/12/24 09:03> Is patient prescribed a controlled substance at d/c from ED?: No <Randall Head - Last Filed: 06/20/24 02:14> Clinical Impression: Heroin overdose Disposition: HOME SELF-CARE Condition: Good Instructions (If sedation given, give patient instructions): Adult Overdose (ED) Referrals: Marvin Benites MD [Primary Care Provider] - 1-2 days
[2024-06-12 12:14] VITALS: BP 124/76; PULSE 92; RESP 18; TEMP 98
== END 2024-06-12 12:15 | disposition home or self-care (01) ==
LOC: EC 08:16
DX: F99 Mental disorder, not otherwise specified
CPT/HCPCS: 82075; 99284

== ENCOUNTER 2024-06-12 18:24 | Observation (INO) | payer OTHER ==
--- NOTE | 2024-06-12 20:20 | ED ---
Recheck HPI - General Chief Complaint: Recheck/Abnormal Lab/Rx Stated Complaint: Withdrawal Time Seen by Provider: 06/12/24 19:05 Source: patient, RN notes reviewed Mode of arrival: ambulatory Limitations: no limitations - History of Present Illness Initial Comments: This is a 29-year-old female who presents to the emergency department for help with withdrawals. Patient was evaluated here last night for the same complaint as well as problems with her hidradenitis suppurativa. She was given prescription for Keflex and Bactrim and remained in the emergency department until at least 5 AM, where she was given food and a place to rest. Her friend then picked her up to take her to [facility]. On the way there they stopped at a gas station, when he went inside she decided to use heroin one last time before rehab. She overdosed and had to be given 2 doses of Narcan. She was then brought to the emergency department for medical and psychiatric clearance. She was cleared and discharged home. Patient reports that afterwards she attempted to go back to [facility], however when they drug tested her they found benzodiazepines in her urine. Patient states that this was from a one-time dose of Valium given to her at the [facility] a week ago, and it is still in her urine because it is longer acting. She is not depe ndent on this. [facility] told her that she needed to detox from benzodiazepines at a higher level of care, however again, she denies any dependence on this. She was also explaining that she had symptoms of dizziness and diaphoresis that often occur when standing up too quickly, and she had an episode a couple weeks ago where she thinks she may have passed out. She has also passed out several times in the past. However, patient is using terminology such as "seizing out" but is not actually sure if she is having seizures. She used that terminology with [facility], which made them think that she needed neurology clearance before returning. - Related Data Home Medications Medication Instructions Recorded Confirmed Cephalexin [Keflex] 500 mg PO DIRECTED 06/12/24 06/12/24 Sulfamethox-Tmp 800-160Mg [Bactrim 1 tab PO DIRECTED 06/12/24 06/12/24 DS 800-160 mg] Allergies Allergy/AdvReac Type Severity Reaction Status Date / Time No Known Allergies Allergy Verified 06/12/24 10:54 Review of Systems ROS Statement: Those systems with pertinent positive or pertinent negative responses have been documented in the HPI. ROS Other: All systems not noted in ROS Statement are negative. Past Medical History Past Medical History: Asthma Additional Past Medical History / Comment(s): bartholian gland, restless leg syndrome, anemia, drug use History of Any Multi-Drug Resistant Organisms: None Reported, MRSA Date of last positivie culture/infection: 03/2021 MDRO Source:: neck Past Surgical History: Section, Cholecystectomy Additional Past Surgical History / Comment(s): D&Cx2 Past Anesthesia/Blood Transfusion Reactions: No Reported Reaction Past Psychological History: No Psychological Hx Reported Smoking Status: Current every day smoker Past Alcohol Use History: Unable to Obtain Past Drug Use History: Heroin, IV Drug Use, Marijuana, Opiates, Prescription Drug Abuse - Past Family History Mother History Unknown: Yes Family Medical History: Coronary Artery Disease (CAD) General Exam Limitations: no limitations General appearance: alert, in no apparent distress Head exam: Present: atraumatic, normocephalic, normal inspection Respiratory exam: Present: normal lung sounds bilaterally. Absent: respiratory distress, wheezes, rales, rhonchi, stridor Cardiovascular Exam: Present: regular rate, normal rhythm, normal heart sounds. Absent: systolic murmur, diastolic murmur, rubs, gallop, clicks Neurological exam: Present: alert, oriented X3, CN II-XII intact Psychiatric exam: Present: normal affect, normal mood Skin exam: Present: other (Scattered healing wounds to her forehead) Course Vital Signs 06/12/24 06/12/24 06/13/24 18:25 22:04 00:00 Temperature 98.6 F Pulse Rate 83 73 56 L Respiratory 18 16 16 Rate Blood Pressure 127/88 113/77 111/79 O2 Sat by Pulse 100 99 97 Oximetry Medical Decision Making - Medical Decision Making This is a 29 year old female who presents to the emergency department requesting help with rehab. Was pt. sent in by a medical professional or institution? @ -No Did you speak to anyone other than the patient for history? @ -Her friend provided the information about [facility]'s concerns and the patient using incorrect terminology. Did you review nursing and triage notes? @ -Yes, and I agree, it is accurate with regards to the patient's symptoms. Were old charts reviewed? @ -No Differential Diagnosis? @ -Differential Substance Abuse: Drug addiction, alcohol abuse, psychiatric illness, electrolyte disturbance, this is not meant to be an all-inclusive list. EKG interpreted by me (3pts min.)? @ -Not obtained X-rays interpreted by me (1pt min.)? @ -Not obtained CT interpreted by me (1pt min.)? @ -Not obtained U/S interpreted by me (1pt. min.)? @ -Not obtained What testing was considered but not performed? (CT, X-rays, U/S, labs)? Why? @ -None What meds were considered but not given? Why? @ -None Did you discuss the management of the patient with other professionals? @ -Yes, Lucila Mcgregor with [facility], who accepts the patient for admission. Did you reconcile home meds? @ -No Was smoking cessation discussed for >3mins.? @ -No Was critical care preformed (if so, how long)? @ -No Were there social determinants of health that impacted care today? How? (Homelessness, low income, unemployed, alcoholism, drug addiction, transportation, low edu. Level, literacy, decrease access to med. care, detention, rehab)? @ -Homelessness, exposing the patient to drugs and preventing her from having a place to stay. Drug addiction, which is the main reason for her visit today. Was there de-escalation of care discussed even if they declined? (Discuss DNR or withdrawal of care, Hospice)? @ -No What co-morbidities impacted this encounter? (DM, HTN, Smoking, COPD, CAD, Cancer, CVA, Hep., AIDS, mental health diagnosis, sleep apnea, morbid obesity)? @ -Drug addiction Was patient admitted / discharged? @ -Admitted. After we received information from the patient regarding the difficulty of getting into [facility], nursing staff contacted them to try and let the patient return. We advised that we believe that the patient may not be using the correct terminology when saying she is "seizing out". She has no history of seizures and has not had an episode in a couple of weeks. However, staff advised that they were concerned about seizures and they would not allow her back there until cleared from a neurological perspective. Patient subsequently admitted to medicine for further evaluation of syncopal episodes and consult was placed for neurology. Baseline lab work was obtained which was unremarkable. She was prescribed Bactrim and Keflex for the recurrent wounds from hidradenitis suppurativa and these were resumed on admission as well. Case discussed with ED attending, Dr. Hoff. Undiagnosed new problem with uncertain prognosis? @ -None Drug Therapy requiring intensive monitoring for toxicity (Heparin, Nitro, Insulin, Cardizem)? @ -None Were any procedures done? @ -None Diagnosis/symptom? @ -Recurrent syncopal episodes, heroin abuse Acute, or Chronic, or Acute on Chronic? @ -Chronic Uncomplicated (without systemic symptoms) or Complicated (systemic symptoms)? @ -Uncomplicated Side effects of treatment? @ -None Exacerbation, Progression, or Severe Exacerbation] @ -Stable Poses a threat to life or bodily function? @ -Yes, can lead to overdose and - Lab Data Result diagrams: 06/12/24 22:05 06/12/24 22:05 Disposition Clinical Impression: Syncopal episodes, Heroin withdrawal Disposition: ADMITTED IP TO THIS HOSP
[2024-06-12] MEDS ORDERED: ACETAMINOPHEN TAB 325 MG TAB PO PRN (21:30)
[2024-06-12] MEDS ORDERED: NALOXONE 0.4 MG/ML 1 ML VIAL IV PRN (21:30)
[2024-06-12] MEDS ORDERED: IBUPROFEN 400 MG TAB PO PRN (21:30)
[2024-06-12] MEDS: SULFAMETHOX-TMP 800-160MG 1 EACH TAB PO SCH (21:59)
[2024-06-12] MEDS: ONDANSETRON 4 MG/2 ML VIAL IVP PRN (21:59)
[2024-06-12 22:24] LABS: Basophils % (A) 0 %; Eosinophils # (A) 0.2 k/uL (0-0.7); Eosinophils % (A) 3 %; HCT 34.7 % (34.0-46.0); HGB 11.6 gm/dL (11.4-16.0); Lymphocytes # (A) 1.8 k/uL (1.0-4.8); Lymphocytes % (A) 33 %; MCH 29.5 pg (25.0-35.0); MCHC 33.5 g/dL (31.0-37.0); Mean Platelet Volume 6.9; Monocytes # (A) 0.3 k/uL (0-1.0); Monocytes % (A) 5 %; Neutrophils % (A) 56 %; Platelet Count 315 k/uL (150-450); RBC 3.94 m/uL (3.80-5.40); RDW 12.9 % (11.5-15.5); WBC 5.3 k/uL (3.8-10.6)
[2024-06-12 22:33] LABS: ALT 24 U/L (4-34); AST 28 U/L (14-36); African American GFR (CKD) >90 (>60 ml/min/1.73 sqM); Albumin 4.2 g/dL (3.5-5.0); Alkaline Phosphatase 91 U/L (38-126); Anion Gap 8 mmol/L; Blood Urea Nitrogen 10 mg/dL (7-17); Calcium 9.5 mg/dL (8.4-10.2); Carbon Dioxide 21 mmol/L (22-30); Chloride 110 mmol/L (98-107); Glucose 101 mg/dL (74-99); Non-African American GFR(CKD) >90 (>60 ml/min/1.73 sqM); Potassium 4.2 mmol/L (3.5-5.1); Sodium 139 mmol/L (137-145); Total Bilirubin 0.4 mg/dL (0.2-1.3); Total Protein 7.2 g/dL (6.3-8.2)
[2024-06-13] MEDS: CEPHALEXIN 500 MG CAP PO SCH (00:26)
[2024-06-13 02:34] LABS: Appearance,Urine Cloudy (Clear); Bacteria,Urine Rare /hpf; Bilirubin,Urine Negative (Negative); Blood,Urine Negative (Negative); Color,Urine Light Yellow; Glucose,Urine (UA) Negative (Negative); Ketones,Urine Negative (Negative); Leukocyte Esterase,Urine Large (Negative); Mucus,Urine Rare /hpf; Nitrite,Urine Negative (Negative); Protein,Urine Negative (Negative); RBC,Urine 12 /hpf (0-5); Specific Gravity,Urine 1.019 (1.001-1.035); Squamous Epithelial Cell,Urine 16 /hpf (0-4); Urobilinogen,Urine <2.0 mg/dL (<2.0); WBC,Urine 29 /hpf (0-5)
[2024-06-13 02:42] LABS: Amphetamine Screen,Urine Detected (NotDetected); Barbiturate Screen,Urine Not Detected (NotDetected); Benzodiazepines Screen,Urine Detected (NotDetected); Cocaine Screen,Urine Not Detected (NotDetected); Methadone Screen, Urine Not Detected (NotDetected); Opiate Screen,Urine Not Detected (NotDetected); Oxycodone Screen, Urine Not Detected (NotDetected); Phencyclidine Screen,Urine Not Detected (NotDetected); Tricyclic Antidepressant,Urine Not Detected (NotDetected); Urn Cannabinoid Scrn Not Detected (NotDetected)
[2024-06-13] MEDS: PANTOPRAZOLE 40 MG/10 ML VIAL IV SCH (08:21)
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
[2024-06-13] MEDS: LORazepam 2 MG/ML INJ IV STA (15:05)
--- NOTE | 2024-06-13 15:11 | P.HPIM ---
History of Present Illness H&P Date: 06/13/24 Chief Complaint: Altered mental status Patient is a 29-year-old female with known history of asthma, restless leg syndrome, IV heroin use, marijuana and prescription drug abuse and also currently everyday smoker presents to ER due to withdrawal symptoms. Patient was evaluated in the ER with complaints of withdrawal symptoms and hidradenitis suppurativa. Patient was given prescription for Keflex and Bactrim and remained in the emergency room until 5 AM. Her friend picked her up to take her to [facility]. On the way they stopped at the gas station and he went inside she decided to use heroin 1 last time before rehab. She overdose and had to be given 2 doses of Narcan. She was then brought to the ER for medical and psychiatric clearance. Patient was cleared and discharged home. Patient reports that she attempted to go back to [place] however when they did tested her on the phone benzodiazepines in her urine. Patient stated that it was due to her one-time dose of Valium given to her at the [facility] a week ago. Patient states that she is not dependent on benzodiazepines. [facility] told her she needed to detox from benzodiazepines at a higher level of care. She was also complaining of dizziness and diaphoresis that occurs when she stands up too quickly. And she had an episode of dizziness and may have passed out couple weeks ago. Patient also states that she passed out several times in the past. Patient is not sure whether she had seizure episode passed out. She told the same thing at [facility] and was sent to the ER for neurological evaluation. UDS is positive for amphetamines, methamphetamines and benzodiazepines. Urinalysis showed large leukocyte esterase with elevated RBCs and WBCs and s quamous epithelial cells. Otherwise patient denied any abdominal pain. Denied any dysuria or hematuria. No increased urine frequency. Other laboratory data reviewed. Review of Systems Constitutional: Patient denies any fever or chills . No generalized weakness or weight loss. Abdomen: Patient denied nausea vomiting and diarrhea and abdominal pain. Cardiovascular: Patient denies any chest pain or short of breath no palpitations. Respiratory: patient denied any cough or sputum production. No shortness of breath Neurologic: Patient denied any numbness or tingling. no headache. Musculoskeletal: Patient denies any complaints of joint swelling or deformity. Skin: Negative Psychiatric: Anxious Endocrine: No heat or cold intolerance. No recent weight gain. Genitourinary: No dysuria or hematuria. All other 14 point ROS negative except the above Past Medical History Past Medical History: Asthma Additional Past Medical History / Comment(s): bartholian gland, restless leg syndrome, anemia, drug use History of Any Multi-Drug Resistant Organisms: None Reported, MRSA Date of last positivie culture/infection: 03/2021 MDRO Source:: neck Past Surgical History: Section, Cholecystectomy Additional Past Surgical History / Comment(s): D&Cx2 Past Anesthesia/Blood Transfusion Reactions: No Reported Reaction Past Psychological History: No Psychological Hx Reported Smoking Status: Current every day smoker Past Alcohol Use History: Unable to Obtain Past Drug Use History: Heroin, IV Drug Use, Marijuana, Opiates, Prescription Drug Abuse - Past Family History Mother History Unknown: Yes Family Medical History: Coronary Artery Disease (CAD) Medications and Allergies Home Medications Medication Instructions Recorded Confirmed Type Cephalexin [Keflex] 500 mg PO DIRECTED 06/12/24 06/12/24 History Sulfamethox-Tmp 800-160Mg [Bactrim 1 tab PO DIRECTED 06/12/24 06/12/24 History DS 800-160 mg] Allergies Allergy/AdvReac Type Severity Reaction Status Date / Time No Known Allergies Allergy Verified 06/12/24 10:54 Physical Exam Vitals: Vital Signs Temp Pulse Pulse Pulse Resp BP BP 06/13/24 07:00 98.3 F 85 17 119/68 06/13/24 02:00 98.1 F 70 18 113/67 06/13/24 00:00 56 L 16 111/79 06/12/24 22:04 73 16 113/77 06/12/24 18:25 98.6 F 83 18 127/88 Pulse Ox 06/13/24 07:00 98 06/13/24 02:00 99 06/13/24 00:00 97 06/12/24 22:04 99 06/12/24 18:25 100 Intake and Output 06/13/24 06/13/24 06/13/24 06:59 14:59 22:59 Intake Total 236 408 Balance 236 408 Intake: Oral 236 408 Other: # Voids 1 3 Weight 52.617 kg PHYSICAL EXAMINATION: Patient is lying in the bed comfortably, no acute distress, awake alert and oriented. Patient is anxious and shaky.. HEENT: Normocephalic. Neck is supple. Pupils reactive. Nostrils clear. Oral cavity is moist. Neck reveals no JVD, carotid bruits, or thyromegaly. CHEST EXAMINATION: Trachea is central. Symmetrical expansion. Lung pina clear to auscultation and percussion. CARDIAC: Normal S1, S2 with no gallops. No murmurs ABDOMEN: Soft. Bowel sounds normal. No organomegaly. No abdominal bruits. Extremities: reveal no edema. No clubbing or cyanosis Neurologically awake, alert, oriented x3 with well-coordinated movements. No gross focal deficits noted Skin: No rash or skin lesions. Psychiatric: Coperative. Denied any suicidal ideation. Musculoskeletal: No joint swelling or deformity. Normal range of motion. Results CBC & Chem 7: 06/12/24 22:05 06/12/24 22:05 Labs: Abnormal Lab Results - Last 24 Hours (Table) 06/12/24 06/13/24 Range/Units 22:05 02:22 Chloride 110 H (98-107) mmol/L Carbon Dioxide 21 L (22-30) mmol/L Glucose 101 H (74-99) mg/dL Urine Appearance Cloudy H (Clear) Ur Leukocyte Esterase Large H (Negative) Urine RBC 12 H (0-5) /hpf Urine WBC 29 H (0-5) /hpf Ur Squamous Epith Cells 16 H (0-4) /hpf Urine Bacteria Rare H (None) /hpf Urine Mucus Rare H (None) /hpf Ur Amphetamines Screen Detected H (NotDetected) U Methamphetamines Scrn Detected H (NotDetected) U Benzodiazepines Scrn Detected H (NotDetected) Thrombosis Risk Factor Assmnt - DVT/VTE Prophylaxis DVT/VTE Prophylaxis: Mechanical Prophylaxis ordered - Choose All That Apply Any of the Below Risk Factors Present?: No Other Risk Factors: Yes Each Risk Factor Represents 3 Points: History of DVT/PE Other congenital or acquired thrombophilia - If yes, enter type in comment: No Thrombosis Risk Factor Assessment Total Risk Factor Score: 3 Thrombosis Risk Factor Assessment Level: Moderate Risk Assessment and Plan Assessment: Altered mental status on admission due to heroin overdose and responded well to Narcan. Acute opiate withdrawal symptoms Polysubstance abuse with heroin IVDU and methamphetamines, prescription drug abuse and tobacco use No prior history of seizures Hidradenitis suppurativa Asthma not in exacerbation DVT prophylaxis with early ambulation Plan: Patient will be given IV hydration with normal saline. Was given a dose of IV Ativan and continue with methadone 10 mg twice daily. Current with antibiotics Keflex and Bactrim. Continue to monitor for opiate withdrawal symptoms and follow-up closely. Anticipate discharge to [facility] in the next 1 to 2 days. Patient has been counseled extensively for abstinence of heroin and polysubstance use as well as smoking cessation. Time with Patient: Greater than 30
[2024-06-13] MEDS: MELATONIN 3 MG TABLET PO PRN (21:03)
[2024-06-13] MEDS: METHADONE 10 MG TAB PO SCH (21:03)
[2024-06-13] MEDS: KETOROLAC 15 MG/ML 1 ML VIAL IVP PRN (21:04)
[2024-06-14] MEDS: SODIUM CHLORIDE 0.9% 1,000 ML IV SCH (00:03)
[2024-06-14] MEDS: PANTOPRAZOLE 40 MG TABLET PO SCH (06:27)
[2024-06-14 11:16] LABS: Blood Urea Nitrogen 13.9 mg/dL (9.0-27.0); Calcium 9.3 mg/dL (8.7-10.3); Carbon Dioxide 20.8 mmol/L (21.6-31.8); Chloride 106 mmol/L (96-109); Glucose 96 mg/dL (70-110); Potassium 4.3 mmol/L (3.5-5.5); Sodium 140 mmol/L (135-145)
--- NOTE | 2024-06-14 16:58 | P.PN ---
Subjective Progress Note Date: 06/14/24 Patient was seen for a follow-up. Patient states she feels much better. She took a shower. She feels somewhat irritable "a little". Also complains of anxiety. No seizures. Patient's caregiver was also present. Objective - Vital Signs Vital signs: Vital Signs Temp 97.7 F 06/14/24 15:00 Pulse 79 06/14/24 15:00 Resp 16 06/14/24 15:00 BP 109/77 06/14/24 15:00 Pulse Ox 99 06/14/24 15:00 FiO2 Intake & Output 06/13/24 06/14/24 06/14/24 18:59 06:59 18:59 Intake Total 766 Balance 766 Intake: Oral 766 Other: # Voids 3 4 3 - Exam Mental status, speech and language functions are normal. Patient appears much better. Patient is not as restless, and delirium seems to have resolved. - Labs CBC & Chem 7: 06/12/24 22:05 06/14/24 03:59 Labs: Abnormal Lab Results - Last 24 Hours (Table) 06/14/24 Range/Units 03:59 Carbon Dioxide 20.8 L (21.6-31.8) mmol/L Anion Gap 13.20 H (4.00-12.00) mmol/L Assessment and Plan Assessment: * Altered mental status, due to heroin overdose. Patient responded well to Narc an, now showing signs of opiate withdrawal. * Polysubstance abuse. Patient has history of IV heroin, meth and tobacco use. * No prior history of seizure. Plan: * Patient appears much more calm and stable. Patient never had any history of seizure. Patient's examination is nonfocal. * No other neurological workup indicated. * Neurologically clear for transfer to [place], if medically cleared. * Treatment of opiate withdrawal as per IM. Consider psychiatry. * Patient counseled about abstinence from polysubstance abuse. * Neurologically clear. We will sign off. Awaiting authorization for transfer to [place].
[2024-06-15 07:44] LABS: African American GFR (CKD) >90 (>60 ml/min/1.73 sqM); Anion Gap 5 mmol/L; Blood Urea Nitrogen 12 mg/dL (7-17); Calcium 8.8 mg/dL (8.4-10.2); Carbon Dioxide 19 mmol/L (22-30); Chloride 111 mmol/L (98-107); Glucose 108 mg/dL (74-99); Non-African American GFR(CKD) 85 (>60 ml/min/1.73 sqM); Potassium 4.2 mmol/L (3.5-5.1); Sodium 135 mmol/L (137-145)
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
--- NOTE | 2024-06-16 00:55 | P.PN ---
Subjective Progress Note Date: 06/14/24 Patient is a 29-year-old female with known history of asthma, restless leg syndrome, IV heroin use, marijuana and prescription drug abuse and also currently everyday smoker presents to ER due to withdrawal symptoms. Patient was evaluated in the ER with complaints of withdrawal symptoms and hidradenitis suppurativa. Patient was given prescription for Keflex and Bactrim and remained in the emergency room until 5 AM. Her friend picked her up to take her to [facility]. On the way they stopped at the gas station and he went inside she decided to use heroin 1 last time before rehab. She overdose and had to be given 2 doses of Narcan. She was then brought to the ER for medical and psychiatric clearance. Patient was cleared and discharged home. Patient reports that she attempted to go back to [place] however when they did tested her on the phone benzodiazepines in her urine. Patient stated that it was due to her one-time dose of Valium given to her at the [facility] a week ago. Patient states that she is not dependent on benzodiazepines. [facility] told her she needed to detox from benzodiazepines at a higher level of care. She was also complaining of dizziness and diaphoresis that occurs when she stands up too quickly. And she had an episode of dizziness and may have passed out couple weeks ago. Patient also states that she passed out several times in the past. Patient is not sure whether she had seizure episode passed out. She told the same thing at [facility] and was sent to the ER for neurological evaluation. UDS is positive for amphetamines, methamphetamines and benzodiazepines. Urinalysis showed large leukocyte esterase with elevated RBCs and WBCs and squamous epithelial cells. Otherwise patient denied any abdominal pain. Denied any dysuria or hematuria. No increased urine frequency. Other laboratory data reviewed. 06/14/2024 Patient is currently sitting in the bed. Awake alert and oriented x 3. Patient states that she feels anxious and somewhat irritable. Was able to take methadone but refusing this morning. Blood pressure is marginal. Catapres could not be started at this time. Afebrile. No chest pain or shortness of breath. Lab data showed sodium 140 potassium 4.3 chloride 106 bicarb is 20.8 BUN 13.9 creatinine 1.0 blood sugar 98. Patient is able to tolerate oral diet. Neurology is on board. Psychiatry was consulted for evaluation. Current medications reviewed. Objective - Vital Signs Vital signs: Vital Signs Temp 98.3 F 06/14/24 07:00 Pulse 65 06/14/24 07:00 Resp 16 06/14/24 07:00 BP 103/66 06/14/24 07:00 Pulse Ox 99 06/14/24 07:00 FiO2 Intake & Output 06/13/24 06/14/24 06/14/24 18:59 06:59 18:59 Intake Total 766 Balance 766 Intake: Oral 766 Other: # Voids 3 4 - Exam PHYSICAL EXAMINATION: Patient is lying in the bed,, no acute distress, awake alert and oriented but anxious and agitated at times... HEENT: Normocephalic. Neck is supple. Pupils reactive. Nostrils clear. Oral cavity is moist. Neck reveals no JVD, carotid bruits, or thyromegaly. CHEST EXAMINATION: Trachea is central. Symmetrical expansion. Lung pina clear to auscultation and percussion. CARDIAC: Normal S1, S2 with no gallops. No murmurs ABDOMEN: Soft. Bowel sounds normal. No organomegaly. No abdominal bruits. Extremities: reveal no edema. No clubbing or cyanosis Neurologically awake, alert, oriented x3 with well-coordinated movements. No focal deficits noted Skin: No rash or skin lesions. Psychiatric: Coperative. Nonsuicidal Musculoskeletal: No joint swelling or deformity. Normal range of motion. - Labs CBC & Chem 7: 06/12/24 22:05 06/15/24 06:41 Labs: Abnormal Lab Results - Last 24 Hours (Table) 06/14/24 Range/Units 03:59 Carbon Dioxide 20.8 L (21.6-31.8) mmol/L Anion Gap 13.20 H (4.00-12.00) mmol/L Assessment and Plan Assessment: Altered mental status on admission due to heroin overdose and responded well to Narcan. Acute opiate withdrawal symptoms Polysubstance abuse with heroin IVDU and methamphetamines, prescription drug abuse and tobacco use No prior history of seizures Hidradenitis suppurativa Asthma not in exacerbation DVT prophylaxis with early ambulation Plan: Patient will be continued on IV hydration with normal saline. Was given a dose of IV Ativan and continue with methadone 10 mg twice daily. Will add Catapres as blood pressure tolerates. Current with antibiotics Keflex and Bactrim. Continue to monitor for opiate withdrawal symptoms and follow-up closely. Anticipate discharge to [facility] in the next 1 to 2 days. Patient has been counseled extensively for abstinence of heroin and polysubstance use as well as smoking cessation.
--- NOTE | 2024-06-16 00:59 | P.PN ---
Subjective Progress Note Date: 06/15/24 Patient is a 29-year-old female with known history of asthma, restless leg syndrome, IV heroin use, marijuana and prescription drug abuse and also currently everyday smoker presents to ER due to withdrawal symptoms. Patient was evaluated in the ER with complaints of withdrawal symptoms and hidradenitis suppurativa. Patient was given prescription for Keflex and Bactrim and remained in the emergency room until 5 AM. Her friend picked her up to take her to [facility]. On the way they stopped at the gas station and he went inside she decided to use heroin 1 last time before rehab. She overdose and had to be given 2 doses of Narcan. She was then brought to the ER for medical and psychiatric clearance. Patient was cleared and discharged home. Patient reports that she attempted to go back to [place] however when they did tested her on the phone benzodiazepines in her urine. Patient stated that it was due to her one-time dose of Valium given to her at the [facility] a week ago. Patient states that she is not dependent on benzodiazepines. [facility] told her she needed to detox from benzodiazepines at a higher level of care. She was also complaining of dizziness and diaphoresis that occurs when she stands up too quickly. And she had an episode of dizziness and may have passed out couple weeks ago. Patient also states that she passed out several times in the past. Patient is not sure whether she had seizure episode passed out. She told the same thing at [facility] and was sent to the ER for neurological evaluation. UDS is positive for amphetamines, methamphetamines and benzodiazepines. Urinalysis showed large leukocyte esterase with elevated RBCs and WBCs and squamous epithelial cells. Otherwise patient denied any abdominal pain. Denied any dysuria or hematuria. No increased urine frequency. Other laboratory data reviewed. 06/14/2024 Patient is currently sitting in the bed. Awake alert and oriented x 3. Patient states that she feels anxious and somewhat irritable. Was able to take methadone but refusing this morning. Blood pressure is marginal. Catapres could not be started at this time. Afebrile. No chest pain or shortness of breath. Lab data showed sodium 140 potassium 4.3 chloride 106 bicarb is 20.8 BUN 13.9 creatinine 1.0 blood sugar 98. Patient is able to tolerate oral diet. Neurology is on board. Psychiatry was consulted for evaluation. 06/15/2024 Patient is awake alert and oriented x 3. Patient states that her anxiety is much improved today. Continues to take methadone 10 mg twice daily. No co mplaints of chest pain or shortness of breath. No headache or dizziness or lightheadedness. Patient is able to tolerate oral diet. Anticipate discharge to rehab in the next 24 hours. Current medications reviewed. Objective - Vital Signs Vital signs: Vital Signs Temp 98.5 F 06/15/24 20:00 Pulse 83 06/15/24 20:00 Resp 18 06/15/24 20:00 BP 113/78 06/15/24 20:00 Pulse Ox 100 06/15/24 20:00 FiO2 Intake & Output 06/15/24 06/15/24 06/16/24 06:59 18:59 06:59 Intake Total 236 Balance 236 Intake: Oral 236 Other: # Voids 1 4 - Exam PHYSICAL EXAMINATION: Patient is lying in the bed,, no acute distress, awake alert and oriented but anxious and agitated at times... HEENT: Normocephalic. Neck is supple. Pupils reactive. Nostrils clear. Oral cavity is moist. Neck reveals no JVD, carotid bruits, or thyromegaly. CHEST EXAMINATION: Trachea is central. Symmetrical expansion. Lung pina clear to auscultation and percussion. CARDIAC: Normal S1, S2 with no gallops. No murmurs ABDOMEN: Soft. Bowel sounds normal. No organomegaly. No abdominal bruits. Extremities: reveal no edema. No clubbing or cyanosis Neurologically awake, alert, oriented x3 with well-coordinated movements. No focal deficits noted Skin: No rash or skin lesions. Psychiatric: Coperative. Nonsuicidal Musculoskeletal: No joint swelling or deformity. Normal range of motion. - Labs CBC & Chem 7: 06/12/24 22:05 06/15/24 06:41 Labs: Abnormal Lab Results - Last 24 Hours (Table) 06/15/24 Range/Units 06:41 Sodium 135 L (137-145) mmol/L Chloride 111 H (98-107) mmol/L Carbon Dioxide 19 L (22-30) mmol/L Glucose 108 H (74-99) mg/dL Assessment and Plan Assessment: Altered mental status on admission due to heroin overdose and responded well to Narcan. Acute opiate withdrawal symptoms Polysubstance abuse with heroin IVDU and methamphetamines, prescription drug abuse and tobacco use No prior history of seizures Hidradenitis suppurativa Asthma not in exacerbation DVT prophylaxis with early ambulation Plan: Patient will be continued on IV hydration with normal saline. Was given a dose of IV Ativan and continue with methadone 10 mg twice daily. Will add Catapres as blood pressure tolerates. Current with antibiotics Keflex and Bactrim. Continue to monitor for opiate withdrawal symptoms and follow-up closely. Anticipate discharge to [facility] in the next 24 hours Patient has been counseled extensively for abstinence of heroin and polysubstance use as well as smoking cessation.
[2024-06-16] MEDS: QUEtiapine 25 MG TAB PO SCH (01:34)
[2024-06-16 09:13] VITALS: BP 113/77; PULSE 70; RESP 16; TEMP 98.5
[2024-06-16 10:25] LABS: Blood Urea Nitrogen 9.2 mg/dL (9.0-27.0); Carbon Dioxide 22.7 mmol/L (21.6-31.8); Chloride 104 mmol/L (96-109); Glucose 90 mg/dL (70-110); Potassium 4.6 mmol/L (3.5-5.5); Sodium 137 mmol/L (135-145)
--- NOTE | 2024-06-16 22:13 | DS ---
DISCHARGE SUMMARY CHIEF COMPLAINT: Syncopal episodes with history of drug abuse. HISTORY OF PRESENT ILLNESS AND PHYSICAL EXAM: Details of this lady's history and physical can be found in the initial workup. LABORATORY STUDIES: While she is in the hospital, she had laboratory studies, details of which can be found in the laboratory section of her chart. COURSE IN THE HOSPITAL: After admission, she was placed on bedrest, started on intravenous fluids. She had no problems while she was inpatient and arrangements were made for her to go to rehab. She was discharged on the and is being taken to [place]. FINAL DIAGNOSES: 1. Several syncopal episodes. 2. Heroin addiction. 3. Longstanding history of substance abuse. OPERATIONS: None. CONSULTATIONS: None. CONDITION: She is improved. ATUL / WALEN: [id number] /
== END 2024-06-16 14:55 | disposition home or self-care (01) ==
LOC: EC 18:24 → 6NMEDSUR 21:32
PROVIDERS: ADMIT Family Medicine; ATTEND Family Medicine
DX: R55 Syncope and collapse (principal); T40.1X1A Poisoning by heroin, accidental (unintentional), initial encounter; R41.82 Altered mental status, unspecified; F11.23 Opioid dependence with withdrawal; F15.10 Other stimulant abuse, uncomplicated; F39 Unspecified mood [affective] disorder; L73.2 Hidradenitis suppurativa; J45.909 Unspecified asthma, uncomplicated; F17.210 Nicotine dependence, cigarettes, uncomplicated; Z59.00 Homelessness unspecified
CPT/HCPCS: 80048; 80053; 80306; 81001; 81025; 85025; 96361; 96374; 96375; 96376; 99285

== ENCOUNTER 2024-07-05 23:50 | Emergency (ER) | payer OTHER ==
[2024-07-05 23:59] VITALS: TEMP 98.7
--- NOTE | 2024-07-06 00:24 | ED ---
General Adult HPI - General Chief complaint: Abdominal Pain Stated complaint: ABD Pain Time Seen by Provider: 07/06/24 00:08 Source: patient Mode of arrival: ambulatory Limitations: no limitations - History of Present Illness Initial comments: Patient presenting for acute on chronic abdominal pain. States that today she had having burning epigastric pain after eating a [place] cheese burger and laying down for bed. She tried a tablet of Zofran, 2 doses of melatonin, 2 tablets of Tylenol and 2 days of tablets of ibuprofen without relief from her pain. Endorse associated nausea but no vomiting. Patient states she has had 1 loose stool a day over the last 3 days but no black or bloody stools. No fevers but does endorse chills. No chest pain or trouble breathing. Patient denies any alcohol or drug use. Prior abdominal surgeries include a prior cholecystectomy. Also notes she has had thick white vaginal discharge of the last week and believes that she has yeast infection. Denies any concerns for STIs no history of STIs. States that she has had this pain for months but today could not control with home medications. Does states she was told she has an ulcer. Patient states pain is typically exacerbated by tomato based foods and spicy foods. - Related Data Home Medications Medication Instructions Recorded Confirmed Cephalexin [Keflex] 500 mg PO DIRECTED 06/12/24 06/12/24 Sulfamethox-Tmp 800-160Mg [Bactrim 1 tab PO DIRECTED 06/12/24 06/12/24 DS 800-160 mg] Previous Rx's Medication Instructions Recorded Cephalexin [Keflex] 500 mg PO Q12HR 7 Days #14 cap 07/06/24 Allergies Allergy/AdvReac Type Severity Reaction Status Date / Time No Known Allergies Allergy Verified 07/05/24 23:58 Review of Systems ROS Statement: Those systems with pertinent positive or pertinent negative responses have been documented in the HPI. ROS Other: All systems not noted in ROS Statement are negative. Past Medical History Past Medical History: Asthma Additional Past Medical History / Comment(s): bartholian gland, restless leg syndrome, anemia, drug use, ulcer History of Any Multi-Drug Resistant Organisms: None Reported, MRSA Date of last positivie culture/infection: 03/2021 MDRO Source:: neck Past Surgical History: Section, Cholecystectomy Additional Past Surgical History / Comment(s): D&Cx2 Past Anesthesia/Blood Transfusion Reactions: No Reported Reaction Past Psychological History: No Psychological Hx Reported Smoking Status: Current every day smoker Past Alcohol Use History: Unable to Obtain Past Drug Use History: Heroin, IV Drug Use, Marijuana, Opiates, Prescription Drug Abuse - Past Family History Mother History Unknown: Yes Family Medical History: Coronary Artery Disease (CAD) General Exam - General Exam Comments Initial Comments: PE: CONSTITUTIONAL: No apparent distress, well appearing, eating animal crackers SKIN: Warm, dry, no jaundice, hives or petechiae EYES: Pupils are equally round, extraocular movements intact without nystagmus, clear conjunctiva, non-icteric sclera HENT: Normocephalic, atraumatic, moist mucus membranes, oropharynx clear without exudates NECK: , Full range of motion, normal appearance PULMONARY: Clear to auscultation without wheezes, rhonchi, or rales, normal excursion, no accessory muscle use and no stridor CARDIOVASCULAR: Regular rate, rhythm, normal S1 and S2. No appreciated murmurs, rubs or gallops. Strong radial pulses with intact distal perfusion. No lower extremity edema GASTROINTESTINAL: Soft, active bowel sounds throughout, TTP in the epigastrium, non-distended, no palpable masses, no rebound or guarding. No hepatosplenomegaly GENITOURINARY: MUSCULOSKELETAL: Extremities have no gross deformity, no edema, redness, or swelling. No calf swelling NEUROLOGIC:_a/o x 3, GCS 15, normal mentation and speech. Moves all extremities x 4 without motor or sensory deficit PSYCHIATRIC:_normal mood and affect, thought process is clear and linear Limitations: no limitations Course Vital Signs 07/05/24 07/06/24 07/06/24 23:56 01:00 03:00 Temperature 98.7 F Pulse Rate 122 H 82 71 Respiratory 20 18 18 Rate Blood Pressure 98/60 104/67 99/59 O2 Sat by Pulse 98 100 100 Oximetry 07/06/24 04:20 Temperature Pulse Rate 84 Respiratory 18 Rate Blood Pressure 98/60 O2 Sat by Pulse 100 Oximetry Medical Decision Making - Medical Decision Making Was pt. sent in by a medical professional or institution (, PA, BODY DESIGN CHECKER, urgent care, hospital, or long-term...) When possible be specific @ -No Did you speak to anyone other than the patient for history (EMS, parent, family, police, friend...)? What history was obtained from this source @ -No Did you review nursing and triage notes (agree or disagree)? Why? @ -I reviewed and agree with nursing and triage notes Were old charts reviewed (outside hosp., previous admission, EMS record, old EKG, old radiological studies, urgent care reports/EKG's, long-term records)? Report findings @ - Reviewed discharge summary from 06/16/2024 patient was recently mated to the hospital for syncopal episodes with history IV drug abuse, discharged to rehab Differential Diagnosis (chest pain, altered mental status, abdominal pain women, abdominal pain men, vaginal bleeding, weakness, fever, dyspnea, syncope, head ache, dizziness, GI bleed, back pain, seizure, CVA, palpatations, mental health, musculoskeletal)? @ -Differential diagnosis remains broad however top considerations include GERD, peptic ulcer disease, gastritis costochondritis, pancreatitis, cholecystitis this is not all-inclusive list EKG interpreted by me (3pts min.). @EKG reviewed, sinus rhythm with short MT interval MT interval 108 ms, QRS d uration 81 ms, QT/QTc 347/393 ms, normal axis, no ST elevations or depressions, no arrhythmia X-rays interpreted by me (1pt min.). @ -None done CT interpreted by me (1pt min.). @ -None done U/S interpreted by me (1pt. min.). @ -None done What testing was considered but not performed or refused? (CT, X-rays, U/S, labs)? Why? @I did consider CT of the abdomen pelvis, however patient's history and exam are strongly consistent with GERD or peptic ulcer disease, labs reassuring, patient actively tolerating p.o. intake on my assessment, pain improved with symptomatic treatment What meds were considered but not given or refused? Why? @ -None Did you discuss the management of the patient with other professionals (professionals i.e. , PA, BODY DESIGN CHECKER, lab, RT, psych nurse, director of social media marketing, x ray physician, teacher, nuclear security officer, behavioral health case manager)? Give summary @ -No Was smoking cessation discussed for >3mins.? @ -No Was critical care preformed (if so, how long)? @ -No Were there social determinants of health that impacted care today? How? (Homelessness, low income, unemployed, alcoholism, drug addiction, tra nsportation, low edu. Level, literacy, decrease access to med. care, fci, rehab)? @ -Yes, history drug addiction Was there de-escalation of care discussed even if they declined (Discuss DNR or withdrawal of care, Hospice)? @ -No What co-morbidities impacted this encounter? (DM, HTN, Smoking, COPD, CAD, Cancer, CVA, ARF, Chemo, Hep., AIDS, mental health diagnosis, sleep apnea, morbid obesity)? @ -None Was patient admitted / discharged? Hospital course, mention meds given and route, prescriptions, significant lab abnormalities, going to OR and other pertinent info. @ -Discharged- Patient is a pleasant 29-year-old female presenting today for epigastric abdominal pain that worsens with spicy and tomato based foods, worsened today with eating a [place] cheese burger. Patient noted to be eating chips in triage and on my assessment is eating animal crackers. Exam significant for epigastric tenderness palpation with active bowel sounds abdomen soft without palpable masses. Plan for IV fluids, Zofran, Protonix, Pepcid, Maalox, urinalysis, urine test, amylase, lipase, lactic, CMP, coagulation studies, CBC and COVID testing If significant abnormalities on labs or unable to control abdominal pain will consider further imaging. Patient is agreeable plan of care. Additionally, pelvic exam was performed with WILLIAM Sanders, as electroneurodiagnostic technologist, due to concerns for vaginal discharge. Shows scant off white discharge. Patient will be given does DiFlucan prior to discharge. Denied concerns for other STIS. Labs overall reassuring, no leukocytosis, lactic 0.9, LFTs within normal limits, lipase 136, urinalysis did show large leukocyte esterase 11 white blood cells 20 squamous cells rare bacteria, negative urine hCG, specimen does appear contaminated however given patient's symptoms will treat with antibiotics at time of discharge. Patient will be discharged with Keflex. On reassessment patients pain has improved. Discussed plan for discharge with abx for UTI. Pt agreeable with POC. In my medical judgment there is currently no evidence of an immediate life- threatening or surgical condition. Discharge is therefore indicated at this time. Discharge treatment instructions, follow up instructions, and appropriate emergency department return precautions were discussed with the patient and/or medical decision maker. Patient and/or medical decision maker expressed underst anding of and agreed with the treatment plan, follow up instructions, and emergency department return precaution. All patient's and/or medical decision maker's questions were answered. The patient was advised that a small risk still exists that a serious condition could develop and was therefore instructed to return to the ED for any changes in symptoms, persistent symptoms, inability to obtain proper follow-up or for any further concerns. Patient received verbal and written instructions for this condition. Undiagnosed new problem with uncertain prognosis?. @ -No Drug Therapy requiring intensive monitoring for toxicity (Heparin, Nitro, Insulin, Cardizem)? @ -No Were any procedures done? @ -No Diagnosis/symptom? @ Gastritis, UTI Acute, or Chronic, or Acute on Chronic? @ -Acute on chronic Uncomplicated (without systemic symptoms) or Complicated (systemic symptoms)? @ Complicated Side effects of treatment? @ -No Exacerbation, Progression, or Severe Exacerbation? @ -No Poses a threat to life or bodily function? How? (Chest pain, USA, MA, pneumonia, PE, COPD, DKA, ARF, appy, cholecystitis, CVA, Diverticulitis, Homicidal, Suicidal, threat to staff... and all critical care pts) @ -No - Lab Data Result diagrams: 07/06/24 00:39 07/06/24 00:39 Lab Results 07/06/24 07/06/24 07/06/24 Range/Units 00:30 00:30 00:39 WBC 9.8 (3.8-10.6) k/uL RBC 4.04 (3.80-5.40) m/uL Hgb 11.6 (11.4-16.0) gm/dL Hct 36.3 (34.0-46.0) % MCV 89.7 (80.0-100.0) fL MCH 28.7 (25.0-35.0) pg MCHC 32.0 (31.0-37.0) g/dL RDW 13.4 (11.5-15.5) % Plt Count 258 (150-450) k/uL MPV 7.0 Neutrophils % 80 % Lymphocytes % 12 % Monocytes % 6 % Eosinophils % 0 % Basophils % 0 % Neutrophils # 7.9 H (1.3-7.7) k/uL Lymphocytes # 1.2 (1.0-4.8) k/uL Monocytes # 0.6 (0-1.0) k/uL Eosinophils # 0.0 (0-0.7) k/uL Basophils # 0.0 (0-0.2) k/uL PT (10.0-12.5) sec INR (<1.2) APTT (22.0-30.0) sec Sodium (137-145) mmol/L Potassium (3.5-5.1) mmol/L Chloride (98-107) mmol/L Carbon Dioxide (22-30) mmol/L Anion Gap mmol/L BUN (7-17) mg/dL Creatinine (0.52-1.04) mg/dL Est GFR (CKD-EPI)AfAm (>60 ml/min/1.73 sqM) Est GFR (CKD-EPI)NonAf (>60 ml/min/1.73 sqM) Glucose (74-99) mg/dL Plasma Lactic Acid Stuart (0.7-2.0) mmol/L Calcium (8.4-10.2) mg/dL Total Bilirubin (0.2-1.3) mg/dL AST (14-36) U/L ALT (4-34) U/L Alkaline Phosphatase (38-126) U/L Total Protein (6.3-8.2) g/dL Albumin (3.5-5.0) g/dL Amylase (30-110) U/L Lipase (23-300) U/L Urine Color Light Yellow Urine Appearance Cloudy H (Clear) Urine pH 5.5 (5.0-8.0) Ur Specific [place] 1.021 (1.001-1.035) Urine Protein Negative (Negative) Urine Glucose (UA) Negative (Negative) Urine Ketones Negative (Negative) Urine Blood Negative (Negative) Urine Nitrite Negative (Negative) Urine Bilirubin Negative (Negative) Urine Urobilinogen <2.0 (<2.0) mg/dL Ur Leukocyte Esterase Large H (Negative) Urine RBC 5 (0-5) /hpf Urine WBC 11 H (0-5) /hpf Ur Squamous Epith Cells 20 H (0-4) /hpf Urine Bacteria Rare H (None) /hpf Hyaline Casts 1 (0-2) /lpf Urine Mucus Few H (None) /hpf Urine HCG, Qual Not Detected (Not Detectd) Influenza Type A (PCR) (Not Detectd) Influenza Type B (PCR) (Not Detectd) RSV (PCR) (Not Detectd) SARS-CoV-2 (PCR) (Not Detectd) 07/06/24 07/06/24 07/06/24 Range/Units 00:39 00:39 00:39 WBC (3.8-10.6) k/uL RBC (3.80-5.40) m/uL Hgb (11.4-16.0) gm/dL Hct (34.0-46.0) % MCV (80.0-100.0) fL MCH (25.0-35.0) pg MCHC (31.0-37.0) g/dL RDW (11.5-15.5) % Plt Count (150-450) k/uL MPV Neutrophils % % Lymphocytes % % Monocytes % % Eosinophils % % Basophils % % Neutrophils # (1.3-7.7) k/uL Lymphocytes # (1.0-4.8) k/uL Monocytes # (0-1.0) k/uL Eosinophils # (0-0.7) k/uL Basophils # (0-0.2) k/uL PT 11.5 (10.0-12.5) sec INR 1.1 (<1.2) APTT 29.7 (22.0-30.0) sec Sodium 137 (137-145) mmol/L Potassium 3.6 (3.5-5.1) mmol/L Chloride 107 (98-107) mmol/L Carbon Dioxide 22 (22-30) mmol/L Anion Gap 8 mmol/L BUN 19 H (7-17) mg/dL Creatinine 0.94 (0.52-1.04) mg/dL Est GFR (CKD-EPI)AfAm >90 (>60 ml/min/1.73 sqM) Est GFR (CKD-EPI)NonAf 83 (>60 ml/min/1.73 sqM) Glucose 125 H (74-99) mg/dL Plasma Lactic Acid Stuart 0.9 (0.7-2.0) mmol/L Calcium 10.2 (8.4-10.2) mg/dL Total Bilirubin 0.8 (0.2-1.3) mg/dL AST 23 (14-36) U/L ALT 23 (4-34) U/L Alkaline Phosphatase 101 (38-126) U/L Total Protein 7.7 (6.3-8.2) g/dL Albumin 4.6 (3.5-5.0) g/dL Amylase 93 (30-110) U/L Lipase 136 (23-300) U/L Urine Color Urine Appearance (Clear) Urine pH (5.0-8.0) Ur Specific [place] (1.001-1.035) Urine Protein (Negative) Urine Glucose (UA) (Negative) Urine Ketones (Negative) Urine Blood (Negative) Urine Nitrite (Negative) Urine Bilirubin (Negative) Urine Urobilinogen (<2.0) mg/dL Ur Leukocyte Esterase (Negative) Urine RBC (0-5) /hpf Urine WBC (0-5) /hpf Ur Squamous Epith Cells (0-4) /hpf Urine Bacteria (None) /hpf Hyaline Casts (0-2) /lpf Urine Mucus (None) /hpf Urine HCG, Qual (Not Detectd) Influenza Type A (PCR) (Not Detectd) Influenza Type B (PCR) (Not Detectd) RSV (PCR) (Not Detectd) SARS-CoV-2 (PCR) (Not Detectd) 07/06/24 Range/Units 00:39 WBC (3.8-10.6) k/uL RBC (3.80-5.40) m/uL Hgb (11.4-16.0) gm/dL Hct (34.0-46.0) % MCV (80.0-100.0) fL MCH (25.0-35.0) pg MCHC (31.0-37.0) g/dL RDW (11.5-15.5) % Plt Count (150-450) k/uL MPV Neutrophils % % Lymphocytes % % Monocytes % % Eosinophils % % Basophils % % Neutrophils # (1.3-7.7) k/uL Lymphocytes # (1.0-4.8) k/uL Monocytes # (0-1.0) k/uL Eosinophils # (0-0.7) k/uL Basophils # (0-0.2) k/uL PT (10.0-12.5) sec INR (<1.2) APTT (22.0-30.0) sec Sodium (137-145) mmol/L Potassium (3.5-5.1) mmol/L Chloride (98-107) mmol/L Carbon Dioxide (22-30) mmol/L Anion Gap mmol/L BUN (7-17) mg/dL Creatinine (0.52-1.04) mg/dL Est GFR (CKD-EPI)AfAm (>60 ml/min/1.73 sqM) Est GFR (CKD-EPI)NonAf (>60 ml/min/1.73 sqM) Glucose (74-99) mg/dL Plasma Lactic Acid Stuart (0.7-2.0) mmol/L Calcium (8.4-10.2) mg/dL Total Bilirubin (0.2-1.3) mg/dL AST (14-36) U/L ALT (4-34) U/L Alkaline Phosphatase (38-126) U/L Total Protein (6.3-8.2) g/dL Albumin (3.5-5.0) g/dL Amylase (30-110) U/L Lipase (23-300) U/L Urine Color Urine Appearance (Clear) Urine pH (5.0-8.0) Ur Specific [place] (1.001-1.035) Urine Protein (Negative) Urine Glucose (UA) (Negative) Urine Ketones (Negative) Urine Blood (Negative) Urine Nitrite (Negative) Urine Bilirubin (Negative) Urine Urobilinogen (<2.0) mg/dL Ur Leukocyte Esterase (Negative) Urine RBC (0-5) /hpf Urine WBC (0-5) /hpf Ur Squamous Epith Cells (0-4) /hpf Urine Bacteria (None) /hpf Hyaline Casts (0-2) /lpf Urine Mucus (None) /hpf Urine HCG, Qual (Not Detectd) Influenza Type A (PCR) Not Detected (Not Detectd) Influenza Type B (PCR) Not Detected (Not Detectd) RSV (PCR) Not Detected (Not Detectd) SARS-CoV-2 (PCR) Not Detected (Not Detectd) Disposition Clinical Impression: Gastritis, Urinary tract infection Disposition: HOME SELF-CARE Condition: Good Instructions (If sedation given, give patient instructions): Gastritis (ED) Additional Instructions: Every disease is a spectrum and a small chance still exists that a serious condition could develop, for this reason, please monitor yourself closely for new, changing or worsening symptoms, symptoms that do not begin to improve in the next 72 hours or with completion of antibiotics, vomiting blood, difficulty in breathing, change in the quality of your usual pain fever, inability to tolerate/keep down fluids or your medications, inability to follow up with outpatient providers as instructed and should you experience these symptoms or should you have any further concerns for your wellbeing please return to the ED or call 911 immediately. PLEASE call your primary care physician as soon as possible to arrange / discuss plan for followup appointment. Appointment in the next 1-3 days is strongly encouraged if possible. PLEASE let us know here before you leave if there is anything further we can do to be of any assistance. Take care and feel Better! Prescriptions: Cephalexin [Keflex] 500 mg PO Q12HR 7 Days #14 cap Is patient prescribed a controlled substance at d/c from ED?: No Referrals: Marvin Benites MD [Primary Care Provider] - 1-2 days
[2024-07-06] MEDS: SODIUM CHLORIDE 0.9% 1,000 ML IV STA (00:45)
[2024-07-06] MEDS: FAMOTIDINE 20 MG/2 ML VIAL IV STA (00:46)
[2024-07-06] MEDS: MAG HYDROX/AL HYDROX/SIMETH 30 ML, HYOSCYAMINE ELIXIR 10 ML, LIDOCAINE VISCOUS 2% 10 ML PO STA (00:48)
[2024-07-06] MEDS: ONDANSETRON 4 MG/2 ML VIAL IVP STA (00:51)
[2024-07-06] MEDS: PANTOPRAZOLE 40 MG/10 ML VIAL IVP STA (00:53)
[2024-07-06 01:10] VITALS: RESP 18
[2024-07-06 01:19] LABS: Basophils % (A) 0 %; Eosinophils % (A) 0 %; HCT 36.3 % (34.0-46.0); HGB 11.6 gm/dL (11.4-16.0); Lymphocytes # (A) 1.2 k/uL (1.0-4.8); Lymphocytes % (A) 12 %; MCH 28.7 pg (25.0-35.0); MCV 89.7 fL (80.0-100.0); Monocytes # (A) 0.6 k/uL (0-1.0); Monocytes % (A) 6 %; Neutrophils # (A) 7.9 k/uL (1.3-7.7); Neutrophils % (A) 80 %; Platelet Count 258 k/uL (150-450); RBC 4.04 m/uL (3.80-5.40); RDW 13.4 % (11.5-15.5); WBC 9.8 k/uL (3.8-10.6)
[2024-07-06 01:23] LABS: ALT 23 U/L (4-34); AST 23 U/L (14-36); African American GFR (CKD) >90 (>60 ml/min/1.73 sqM); Albumin 4.6 g/dL (3.5-5.0); Alkaline Phosphatase 101 U/L (38-126); Amylase 93 U/L (30-110); Blood Urea Nitrogen 19 mg/dL (7-17); Calcium 10.2 mg/dL (8.4-10.2); Chloride 107 mmol/L (98-107); Glucose 125 mg/dL (74-99); Lipase 136 U/L (23-300); Non-African American GFR(CKD) 83 (>60 ml/min/1.73 sqM); Potassium 3.6 mmol/L (3.5-5.1); Sodium 137 mmol/L (137-145); Total Bilirubin 0.8 mg/dL (0.2-1.3); Total Protein 7.7 g/dL (6.3-8.2)
[2024-07-06 01:27] LABS: Appearance,Urine Cloudy (Clear); Bacteria,Urine Rare /hpf; Bilirubin,Urine Negative (Negative); Blood,Urine Negative (Negative); Color,Urine Light Yellow; Glucose,Urine (UA) Negative (Negative); Hyaline Casts,Urine 1 /lpf (0-2); Ketones,Urine Negative (Negative); Leukocyte Esterase,Urine Large (Negative); Mucus,Urine Few /hpf; Nitrite,Urine Negative (Negative); PH, Urine 5.5 (5.0-8.0); Protein,Urine Negative (Negative); RBC,Urine 5 /hpf (0-5); Specific Gravity,Urine 1.021 (1.001-1.035); Squamous Epithelial Cell,Urine 20 /hpf (0-4); Urobilinogen,Urine <2.0 mg/dL (<2.0); WBC,Urine 11 /hpf (0-5)
[2024-07-06 01:33] LABS: INR 1.1 (<1.2); Partial Thromboplastin Time 29.7 sec (22.0-30.0); Prothrombin Time 11.5 sec (10.0-12.5)
[2024-07-06 01:39] LABS: Anion Gap 8 mmol/L; Carbon Dioxide 22 mmol/L (22-30)
[2024-07-06] MEDS: FLUCONAZOLE 150 MG TAB PO STA (04:23)
[2024-07-06 04:43] VITALS: BP 98/60; PULSE 84
== END 2024-07-06 04:25 | disposition home or self-care (01) ==
LOC: EC 23:50
CPT/HCPCS: 36415; 80053; 81001; 81025; 82150; 83605; 83690; 85025; 85610; 85730; 87086; 87636; 96361; 96374; 96375; 99284

== ENCOUNTER → 2024-08-07 | Outpatient (CLI) | payer OTHER ==
--- NOTE | 2024-08-07 15:05 | CT ---
EXAMINATION TYPE: CT abdomen pelvis wo/w con DATE OF EXAM: 08/07/2024 COMPARISON: CLINICAL INDICATION: Female, 29 years old with history of R10.9 UNSPECIFIED ABDOMINAL PAIN N92 R14.0 ABDOMIN; PHH, COFFEE GROUND STOOLS, GASRITIS TECHNIQUE: Performed with Oral Contrast and with IV Contrast, patient injected with 100 mL of Isovue 370. CT DLP: 583.2 mGycm Automated exposure control for dose reduction was used. Findings: The lung bases are clear. There is surgical absence of the gallbladder. There is no biliary ductal dilatation. There is no focal mass or organomegaly involving the liver, pancreas, spleen or adrenal glands. There is no solid renal mass or hydronephrosis and there is homogeneous contrast enhancement of the r enal parenchyma. There are no renal calcifications. The caliber the abdominal aorta is normal is no retroperitoneal adenopathy or hemorrhage. The bowel loops are normal in caliber and there is no evidence of dilatation or obstruction. No infla mmatory changes are identified in the bowel wall or mesentery. There is no free intraperitoneal air or fluid. No pelvic mass, free fluid, abscess or adenopathy. The osseous structures and soft tissues are intact. IMPRESSION: No significant abnormality seen. [facility], , 08/07/2024 3:02 PM
== END | disposition home or self-care (01) ==
LOC: RADCTMAIN 12:45
PROVIDERS: ATTEND Family Medicine
CPT/HCPCS: 74178

== ENCOUNTER 2024-09-18 10:35 | Emergency (ER) | payer OTHER ==
[2024-09-18 11:28] VITALS: RESP 18
[2024-09-18] MEDS: IBUPROFEN 600 MG TAB PO STA (12:03)
[2024-09-18] MEDS: ACETAMINOPHEN TAB 325 MG TAB PO STA (12:03)
--- NOTE | 2024-09-18 12:18 | ED ---
ENT HPI - General Chief complaint: ENT Stated complaint: CHARLINE Time Seen by Provider: 09/18/24 12:17 Source: patient, RN notes reviewed Mode of arrival: ambulatory Limitations: no limitations - History of Present Illness Initial comments: 29-year-old female presents emergency ferment complaint sore throat, fever. Patient states she has had fever chills and bodyaches along with mild congestion. Patient states she had similar infection a few months ago. Patient denies any chest pain, headache, neck pain or neck stiffness otherwise. - Related Data Home Medications Medication Instructions Recorded Confirmed Cephalexin [Keflex] 500 mg PO DIRECTED 06/12/24 06/12/24 Sulfamethox-Tmp 800-160Mg [Bactrim 1 tab PO DIRECTED 06/12/24 06/12/24 DS 800-160 mg] Previous Rx's Medication Instructions Recorded Cephalexin [Keflex] 500 mg PO Q12HR 7 Days #14 cap 07/06/24 Amoxic-Pot Clav 875-125Mg 1 tab PO Q12HR #20 tab 09/18/24 [Augmentin 875-125] Allergies Allergy/AdvReac Type Severity Reaction Status Date / Time No Known Allergies Allergy Verified 09/18/24 10:56 Review of Systems ROS Statement: Those systems with pertinent positive or pertinent negative responses have been documented in the HPI. ROS Other: All systems not noted in ROS Statement are negative. Past Medical History Past Medical History: Asthma Additional Past Medical History / Comment(s): bartholian gland, restless leg syndrome, anemia, drug use, ulcer, hidradenitis suppurativa History of Any Multi-Drug Resistant Organisms: MRSA Date of last positivie culture/infection: 03/2021 MDRO Source:: neck Past Surgical History: Section, Cholecystectomy Additional Past Surgical History / Comment(s): D&Cx2 Past Anesthesia/Blood Transfusion Reactions: No Reported Reaction Past Psychological History: No Psychological Hx Reported Smoking Status: Current every day smoker Past Alcohol Use History: None Reported Past Drug Use History: Heroin, IV Drug Use, Marijuana, Opiates, Prescription Drug Abuse - Past Family History Mother History Unknown: Yes Family Medical History: Coronary Artery Disease (CAD) General Exam Limitations: no limitations General appearance: alert, in no apparent distress Head exam: Present: atraumatic, normocephalic, normal inspection Eye exam: Present: normal appearance, PERRL, EOMI. Absent: scleral icterus, conjunctival injection, periorbital swelling ENT exam: Present: mucous membranes moist, TM's normal bilaterally. Absent: normal exam, normal oropharynx (Posterior pharynx with exudates) Neck exam: Present: normal inspection, full ROM. Absent: tenderness, meningismus, lymphadenopathy Respiratory exam: Present: normal lung sounds bilaterally. Absent: respiratory distress, wheezes, rales, rhonchi, stridor Cardiovascular Exam: Present: normal rhythm, tachycardia, normal heart sounds. Absent: systolic murmur, diastolic murmur, rubs, gallop, clicks Course Vital Signs 09/18/24 09/18/24 09/18/24 10:56 11:26 12:39 Temperature 100.2 F H 98.9 F Pulse Rate 124 H 104 H Respiratory 20 18 18 Rate Blood Pressure 88/61 96/62 O2 Sat by Pulse 96 97 Oximetry Medical Decision Making - Medical Decision Making Was pt. sent in by a medical professional or institution (, PA, SOX ANALYST, urgent care, hospital, or fdc...) When possible be specific @ -No Did you speak to anyone other than the patient for history (EMS, parent, family, police, friend...)? What history was obtained from this source @ -No Did you review nursing and triage notes (agree or disagree)? Why? @ -I reviewed and agree with nursing and triage notes Were old charts reviewed (outside hosp., previous admission, EMS record, old EKG, old radiological studies, urgent care reports/EKG's, fdc records)? Report findings @ -No old charts were reviewed Differential Diagnosis (chest pain, altered mental status, abdominal pain women, abdominal pain men, vaginal bleeding, weakness, fever, dyspnea, syncope, headache, dizziness, GI bleed, back pain, seizure, CVA, palpatations, mental health, musculoskeletal)? @ -Strep, tonsillitis, mono COVID 19, RSV, influenza, pneumonia, acute bronchitis, URI, this list is not all inclusive EKG interpreted by me (3pts min.). @ -None X-rays interpreted by me (1pt min.). @ -None done CT interpreted by me (1pt min.). @ -None done U/S interpreted by me (1pt. min.). @ -None done What testing was considered but not performed or refused? (CT, X-rays, U/S, labs)? Why? @ -None What meds were considered but not given or refused? Why? @ -None Did you discuss the management of the patient with other professionals (professionals i.e. , PA, SOX ANALYST, lab, RT, psych nurse, social services technician, design maintenance engineer, teacher, court security officer, supervisor case loading)? Give summary @ -No Was smoking cessation discussed for >3mins.? @ -No Was critical care preformed (if so, how long)? @ -No Were there social determinants of health that impacted care today? How? (Homelessness, low income, unemployed, alcoholism, drug addiction, transportation, low edu. Level, literacy, decrease access to med. care, care home, rehab)? @ -No Was there de-escalation of care discussed even if they declined (Discuss DNR or withdrawal of care, Hospice)? DNR status @ -No What co-morbidities impacted this encounter? (DM, HTN, Smoking, COPD, CAD, Cancer, CVA, ARF, Chemo, Hep., AIDS, mental health diagnosis, sleep apnea, morbid obesity)? @ -None Was patient admitted / discharged? Hospital course, mention meds given and route, prescriptions, significant lab abnormalities, going to OR and other pertinent info. @ -Patient has acute bacterial tonsillitis will be treated with Augmentin patient negative strep, negative Cepheid. Undiagnosed new problem with uncertain prognosis? @ -No Drug Therapy requiring intensive monitoring for toxicity (Heparin, Nitro, Insulin, Cardizem)? @ -No Were any procedures done? @ -No Diagnosis/symptom? @ -Tonsillitis Acute, or Chronic, or Acute on Chronic? @ -Acute Uncomplicated (without systemic symptoms) or Complicated (systemic symptoms)? @ -Uncomplicated Side effects of treatment? @ -No Exacerbation, Progression, or Severe Exacerbation? @ -No Poses a threat to life or bodily function? How? (Chest pain, USA, [place], pneumonia, PE, COPD, DKA, ARF, appy, cholecystitis, CVA, Diverticulitis, Homicidal, Suicidal, threat to staff... and all critical care pts) @ -No - Lab Data Lab Results 09/18/24 09/18/24 Range/Units 11:21 11:21 Influenza Type A (PCR) Not Detected (Not Detectd) Influenza Type B (PCR) Not Detected (Not Detectd) RSV (PCR) Not Detected (Not Detectd) SARS-CoV-2 (PCR) Not Detected (Not Detectd) Group A Strep (PCR) NOT DETECTED (Not Detectd) Disposition Clinical Impression: Acute bacterial tonsillitis Disposition: HOME SELF-CARE Condition: Stable Instructions (If sedation given, give patient instructions): Tonsillitis (ED) Additional Instructions: Please return to the Emergency Department if symptoms worsen or any other concerns. Prescriptions: Amoxic-Pot Clav 875-125Mg [Augmentin 875-125] 1 tab PO Q12HR #20 tab Is patient prescribed a controlled substance at d/c from ED?: No Referrals: Marvin Benites MD [Primary Care Provider] - 1-2 days Heath Leon MD [STAFF PHYSICIAN] - 1-2 days Time of Disposition: 12:18
[2024-09-18 12:40] VITALS: BP 96/62; PULSE 104; TEMP 98.9
== END 2024-09-18 12:40 | disposition home or self-care (01) ==
LOC: EC 10:35
DX: J03.90 Acute tonsillitis, unspecified (principal); F17.200 Nicotine dependence, unspecified, uncomplicated
CPT/HCPCS: 87636; 87651; 99285

== ENCOUNTER 2024-09-23 23:09 | Emergency (ER) | payer OTHER ==
[2024-09-23 23:14] VITALS: PULSE 71; RESP 18
--- NOTE | 2024-09-23 23:36 | ED ---
ENT HPI - General Chief complaint: ENT Stated complaint: Ear Pain Time Seen by Provider: 09/23/24 23:34 Source: patient, RN notes reviewed Mode of arrival: ambulatory Limitations: no limitations - History of Present Illness Initial comments: 29-year-old female presented to the ER for evaluation of right ear pain. Patient states she was washing her face and accidentally rubbed her right tragus when she felt a pop in her right ear. She noticed blood coming out of the canal as well. She does report "muffled hearing" on the right side. Patient reports she is currently on antibiotics for dental infection and is scheduled to follow- up with the oral surgeon out [facility]. She is on Augmentin. She denies any tongue, throat swelling, difficulty breathing or handling secretions. No fevers. No other complaints. - Related Data Home Medications Medication Instructions Recorded Confirmed Cephalexin [Keflex] 500 mg PO DIRECTED 06/12/24 06/12/24 Sulfamethox-Tmp 800-160Mg [Bactrim 1 tab PO DIRECTED 06/12/24 06/12/24 DS 800-160 mg] Previous Rx's Medication Instructions Recorded Cephalexin [Keflex] 500 mg PO Q12HR 7 Days #14 cap 07/06/24 Amoxic-Pot Clav 875-125Mg 1 tab PO Q12HR #20 tab 09/18/24 [Augmentin 875-125] Allergies Allergy/AdvReac Type Severity Reaction Status Date / Time No Known Allergies Allergy Verified 09/23/24 23:14 Review of Systems ROS Statement: Those systems with pertinent positive or pertinent negative responses have been documented in the HPI. ROS Other: All systems not noted in ROS Statement are negative. Past Medical History Past Medical History: Asthma Additional Past Medical History / Comment(s): bartholian gland, restless leg syndrome, anemia, drug use, ulcer, hidradenitis suppurativa History of Any Multi-Drug Resistant Organisms: MRSA Date of last positivie culture/infection: 03/2021 MDRO Source:: neck Past Surgical History: Section, Cholecystectomy Additional Past Surgical History / Comment(s): D&Cx2 Past Anesthesia/Blood Transfusion Reactions: No Reported Reaction Past Psychological History: No Psychological Hx Reported Smoking Status: Current every day smoker Past Alcohol Use History: None Reported Past Drug Use History: Heroin, IV Drug Use, Marijuana, Opiates, Prescription Drug Abuse - Past Family History Mother History Unknown: Yes Family Medical History: Coronary Artery Disease (CAD) General Exam Limitations: no limitations General appearance: alert, in no apparent distress ENT exam: Present: normal exam, normal oropharynx, mucous membranes moist, TM's normal bilaterally (No mastoid tenderness bilaterally. There is a erythematous pustule to right tragus. No active bleeding. Bilateral external auditory canals unremarkable), other (No drainable dental abscess. Poor dentition.) Respiratory exam: Present: normal lung sounds bilaterally. Absent: respiratory distress, wheezes, rales, rhonchi, stridor Cardiovascular Exam: Present: regular rate, normal rhythm, normal heart sounds. Absent: systolic murmur, diastolic murmur, rubs, gallop, clicks Neurological exam: Present: alert, oriented X3, CN II-XII intact Skin exam: Present: warm, dry, intact, normal color. Absent: rash Course Vital Signs 09/23/24 09/24/24 23:09 00:17 Temperature 98.8 F 98.0 F Pulse Rate 71 71 Respiratory 18 18 Rate Blood Pressure 119/76 117/80 O2 Sat by Pulse 96 100 Oximetry Medical Decision Making - Medical Decision Making Was pt. sent in by a medical professional or institution (, PA, SUPERVISOR DOG LICENSE OFFICER, urgent care, hospital, or senior care...) When possible be specific @ -No Did you speak to anyone other than the patient for history (EMS, parent, family, police, friend...)? What history was obtained from this source @ -No Did you review nursing and triage notes (agree or disagree)? Why? @ -I reviewed and agree with nursing and triage notes Were old charts reviewed (outside hosp., previous admission, EMS record, old EKG, old radiological studies, urgent care reports/EKG's, senior care records)? Report findings @ -No old charts were reviewed Differential Diagnosis (chest pain, altered mental status, abdominal pain women, abdominal pain men, vaginal bleeding, weakness, fever, dyspnea, syncope, headache, dizziness, GI bleed, back pain, seizure, CVA, palpatations, mental health, musculoskeletal)? @ -Otitis media, otitis externa, mastoiditis, ruptured tympanic membrane... This list is not meant to be all-inclusive EKG interpreted by me (3pts min.). @ -None done X-rays interpreted by me (1pt min.). @ -None done CT interpreted by me (1pt min.). @ -None done U/S interpreted by me (1pt. min.). @ -None done What testing was considered but not performed or refused? (CT, X-rays, U/S, labs)? Why? @ -None What meds were considered but not given or refused? Why? @ -None Did you discuss the management of the patient with other professionals (professionals i.e. , PA, SUPERVISOR DOG LICENSE OFFICER, lab, RT, psych nurse, social worker assistant, analytics leader, teacher, animal park code enforcement officer, case management assistant)? Give summary @ -No Was smoking cessation discussed for >3mins.? @ -No Was critical care preformed (if so, how long)? @ -No Were there social determinants of health that impacted care today? How? (Homelessness, low income, unemployed, alcoholism, drug addiction, transportation, low edu. Level, literacy, decrease access to med. care, long-term, rehab)? @ -No Was there de-escalation of care discussed even if they declined (Discuss DNR or withdrawal of care, Hospice)? DNR status @ -No What co-morbidities impacted this encounter? (DM, HTN, Smoking, COPD, CAD, Cancer, CVA, ARF, Chemo, Hep., AIDS, mental health diagnosis, sleep apnea, morbid obesity)? @ -None Was patient admitted / discharged? Hospital course, mention meds given and route, prescriptions, significant lab abnormalities, going to OR and other pertinent info. @ -Discharge. 29-year-old female presenting to the ER for evaluation of right ear pain. History of physical exam completed. Vitals within normal limits. Exam remarkable for a pustule to right tragus. External auditory canal and tympanic membrane are unremarkable. There is no mastoid tenderness bilaterally. Pain and bleeding believed to be due from tragus pustule. I advised patient to continue taking antibiotics as prescribed for dental infection as there is no drainable abscess or oropharynx edema on exam today. I also instructed her to follow-up closely with oral surgeon and PCP. Strict return parameters discussed. Patient discharged in stable condition with follow-up to PCP. Patient verbally expressed understanding and agreement with care plan. Case discussed with ED attending, . Undiagnosed new problem with uncertain prognosis? @ -No Drug Therapy requiring intensive monitoring for toxicity (Heparin, Nitro, Insulin, Cardizem)? @ -No Were any procedures done? @ -No Diagnosis/symptom? @ -Ear pain Acute, or Chronic, or Acute on Chronic? @ -Acute Uncomplicated (without systemic symptoms) or Complicated (systemic symptoms)? @ -Uncomplicated Side effects of treatment? @ -No Exacerbation, Progression, or Severe Exacerbation? @ -No Poses a threat to life or bodily function? How? (Chest pain, USA, CT, pneumonia, PE, COPD, DKA, ARF, appy, cholecystitis, CVA, Diverticulitis, Homicidal, Suicidal, threat to staff... and all critical care pts) @ -No Disposition Clinical Impression: Ear pain Disposition: HOME SELF-CARE Condition: Stable Instructions (If sedation given, give patient instructions): Earache (ED) Additional Instructions: Continue take [id number] ibuprofen and Tylenol for pain control. Follow- up with oral surgery and PCP. Return to the ER for any new or worsening symptoms. Is patient prescribed a controlled substance at d/c from ED?: No Referrals: Marvin Benites MD [Primary Care Provider] - 1-2 days Time of Disposition: 23:45
[2024-09-24 00:18] VITALS: BP 117/80; TEMP 98
== END 2024-09-24 00:19 | disposition home or self-care (01) ==
LOC: EC 23:09
DX: H92.01 Otalgia, right ear (principal); F17.200 Nicotine dependence, unspecified, uncomplicated
CPT/HCPCS: 99283

== ENCOUNTER 2025-03-03 22:21 | Emergency (ER) | payer OTHER ==
--- NOTE | 2025-03-03 22:42 | ED ---
Female Urogenital HPI - General Chief complaint: Vaginal Bleeding Stated complaint: vaginal bleeding newly Time Seen by Provider: 03/03/25 22:28 Source: patient, RN notes reviewed Mode of arrival: ambulatory Limitations: no limitations - History of Present Illness Initial comments: This is a 29-year-old female who presents to the emergency department for vaginal bleeding in . She had 3 positive tests at home today. Unsure how far along she is, but states that her LMP was 01/12/2025. She would be . She had some abdominal pain earlier today that has since resolved and also reports experiencing morning sickness. However, her largest concern is that she has been spotting throughout the day. MD Complaint: vaginal bleeding Last Menstrual Period: 01/12/25 - Related Data Home Medications Medication Instructions Recorded Confirmed Cephalexin [Keflex] 500 mg PO DIRECTED 06/12/24 06/12/24 Sulfamethox-Tmp 800-160Mg [Bactrim 1 tab PO DIRECTED 06/12/24 06/12/24 DS 800-160 mg] Previous Rx's Medication Instructions Recorded Cephalexin [Keflex] 500 mg PO Q12HR 7 Days #14 cap 07/06/24 Amoxic-Pot Clav 875-125Mg 1 tab PO Q12HR #20 tab 09/18/24 [Augmentin 875-125] Ondansetron Odt [Zofran Odt] 4 mg PO Q8HR PRN #20 tab 03/04/25 Allergies Allergy/AdvReac Type Severity Reaction Status Date / Time No Known Allergies Allergy Verified 03/03/25 22:27 Review of Systems ROS Statement: Those systems with pertinent positive or pertinent negative responses have been documented in the HPI. ROS Other: All systems not noted in ROS Statement are negative. Past Medical History Past Medical History: Asthma Additional Past Medical History / Comment(s): bartholian gland, restless leg syndrome, anemia, drug use, ulcer, hidradenitis suppurativa History of Any Multi-Drug Resistant Organisms: MRSA Date of last positivie culture/infection: 03/2021 MDRO Source:: neck Past Surgical History: Section, Cholecystectomy Additional Past Surgical History / Comment(s): D&Cx2 Past Anesthesia/Blood Transfusion Reactions: No Reported Reaction Past Psychological History: No Psychological Hx Reported Smoking Status: Current every day smoker Past Alcohol Use History: None Reported Past Drug Use History: Heroin, IV Drug Use, Marijuana, Opiates, Prescription Drug Abuse - Past Family History Mother History Unknown: Yes Family Medical History: Coronary Artery Disease (CAD) General Exam Limitations: no limitations General appearance: alert, in no apparent distress Head exam: Present: atraumatic, normocephalic, normal inspection Respiratory exam: Present: normal lung sounds bilaterally. Absent: respiratory distress, wheezes, rales, rhonchi, stridor Cardiovascular Exam: Present: regular rate, normal rhythm Neurological exam: Present: alert, oriented X3, CN II-XII intact Psychiatric exam: Present: normal affect, normal mood Skin exam: Present: warm, dry, intact, normal color. Absent: rash Course Vital Signs 03/03/25 03/04/25 22:24 02:23 Temperature 97.8 F 97.7 F Pulse Rate 73 79 Respiratory 18 19 Rate Blood Pressure 118/72 119/79 O2 Sat by Pulse 100 98 Oximetry Medical Decision Making - Medical Decision Making This is a 29-year-old female who presents to the emergency department for vaginal bleeding in . Was pt. sent in by a medical professional or institution? @ -No Did you speak to anyone other than the patient for history? @ -No Did you review nursing and triage notes? @ -Yes, and I agree, it is accurate with regards to the patient's symptoms. Were old charts reviewed? @ -No Differential Diagnosis? @ -Differential Vaginal Bleeding: Spontaneous , threatened , molar , ectopic , incompetent cervix, placenta previa, uterine rupture, dysfunctional uterine bleeding, hemorrhage, uterine fibroids, malignancy, coagulopathy, PID, cervicitis, adenomyosis, vaginal trauma, this is not meant to be an all- inclusive list. EKG interpreted by me (3pts min.)? @ -Not obtained X-rays interpreted by me (1pt min.)? @ -Not obtained CT interpreted by me (1pt min.)? @ -Not obtained U/S interpreted by me (1pt. min.)? @ -Obstetrics ultrasound obtained. My interpretation identifies a single live intrauterine . What testing was considered but not performed? (CT, X-rays, U/S, labs)? Why? @ -None What meds were considered but not given? Why? @ -None Did you discuss the management of the patient with other professionals? @ -No Did you reconcile home meds? @ -No Was smoking cessation discussed for >3mins.? @ -No Was critical care preformed (if so, how long)? @ -No Were there social determinants of health that impacted care today? How? (Homelessness, low income, unemployed, alcoholism, drug addiction, transportation, low edu. Level, literacy, decrease access to med. care, correction, rehab)? @ -No Was there de-escalation of care discussed even if they declined? (Discuss DNR or withdrawal of care, Hospice)? @ -No What co-morbidities impacted this encounter? (DM, HTN, Smoking, COPD, CAD, Cancer, CVA, Hep., AIDS, mental health diagnosis, sleep apnea, morbid obesity)? @ - Was patient admitted / discharged? @ -Discharged. Lab work demonstrates mild hypokalemia with a potassium of 3.3. 40 mEq [place] [address]. She is Rh+ and no RhoGAM is indicated. Urinalysis demonstrates a small amount of blood but is otherwise negative for signs of infection. Obstetrics ultrasound obtained demonstrating a single live intrauterine with an estimated gestational age of 6 weeks 2 days. Findings reviewed with the patient. She has been taking Zofran at home for the nausea and requested a refill. This was provided. Advised she otherwise follow-up with an [facility] for ongoing obstetrics care. Patient discharged home in stable condition. Case discussed with ED attending Dr. Blackman. Return precautions reviewed in depth, the patient is instructed to return to the emergency department with any new, worsening, or concerning symptoms. Patient verbalized understanding. Undiagnosed new problem with uncertain prognosis? @ -None Drug Therapy requiring intensive monitoring for toxicity (Heparin, Nitro, Ins ulin, Cardizem)? @ -None Were any procedures done? @ -None Diagnosis/symptom? @ -Vaginal bleeding in , nausea and vomiting in Acute, or Chronic, or Acute on Chronic? @ -Acute Uncomplicated (without systemic symptoms) or Complicated (systemic symptoms)? @ -Uncomplicated Side effects of treatment? @ -None Exacerbation, Progression, or Severe Exacerbation] @ -Not applicable Poses a threat to life or bodily function? @ -No - Lab Data Result diagrams: 03/03/25 22:47 03/03/25 22:47 Lab Results 0503/03/25 03/03/25 Range/Units 22:47 22:47 22:47 WBC 4.64 (4.50-10.00) 10*3/uL RBC 3.34 L (4.10-5.20) 10*6/uL Hgb 10.7 L (12.0-15.0) g/dL Hct 29.9 L (37.2-46.3) % MCV 89.5 (80.0-97.0) fL MCH 32.0 (27.0-32.0) pg MCHC 35.8 (32.0-37.0) g/dL Plt Count 213 (140-440) 10*3/uL MPV 9.5 (9.5-12.2) fL Immature Gran % (Auto) 0.2 % Neutrophils % 42.3 % Lymphocytes % 45.9 % Monocytes % 8.6 % Eosinophils % 2.6 % Basophils % 0.4 % Immature Gran # 0.01 (0.00-0.04) 10*3/uL Neutrophils # 1.96 (1.80-7.70) 10*3/uL Lymphocytes # 2.13 (0.90-5.00) 10*3/uL Monocytes # 0.40 (0.20-1.00) 10*3/uL Eosinophils # 0.12 (0.04-0.35) 10*3/uL Basophils # 0.02 (0.00-0.10) 10*3/uL Sodium 134 L (137-145) mmol/L Potassium 3.3 L (3.5-5.1) mmol/L Chloride 99 (98-107) mmol/L Carbon Dioxide 24 (22-30) mmol/L Anion Gap 11 mmol/L BUN 10 (7-17) mg/dL Creatinine 0.57 (0.52-1.04) mg/dL Est GFR (CKD-EPI)AfAm >90 (>60 ml/min/1.73 sqM) Est GFR (CKD-EPI)NonAf >90 (>60 ml/min/1.73 sqM) Glucose 95 (74-99) mg/dL Calcium 9.3 (8.4-10.2) mg/dL Total Bilirubin 0.4 (0.2-1.3) mg/dL AST 19 (14-36) U/L ALT 15 (4-34) U/L Alkaline Phosphatase 79 (38-126) U/L Total Protein 7.2 (6.3-8.2) g/dL Albumin 4.1 (3.5-5.0) g/dL HCG, Quant 43328.5 mIU/mL Urine Color Colorless Urine Appearance Clear (Clear) Urine pH 6.5 (5.0-8.0) Ur Specific [place] 1.001 (1.001-1.035) Urine Protein Negative (Negative) Urine Glucose (UA) Negative (Negative) Urine Ketones Negative (Negative) Urine Blood Small H (Negative) Urine Nitrite Negative (Negative) Urine Bilirubin Negative (Negative) Urine Urobilinogen <2.0 (<2.0) mg/dL Ur Leukocyte Esterase Negative (Negative) Urine RBC 1 (0-5) /hpf Urine WBC <1 (0-5) /hpf Ur Squamous Epith Cells 1 (0-4) /hpf Urine Bacteria Rare H (None) /hpf Blood Type Blood Type Recheck Bld Type Recheck Status 03/03/25 Range/Units 22:47 WBC (4.50-10.00) 10*3/uL RBC (4.10-5.20) 10*6/uL Hgb (12.0-15.0) g/dL Hct (37.2-46.3) % MCV (80.0-97.0) fL MCH (27.0-32.0) pg MCHC (32.0-37.0) g/dL Plt Count (140-440) 10*3/uL MPV (9.5-12.2) fL Immature Gran % (Auto) % Neutrophils % % Lymphocytes % % Monocytes % % Eosinophils % % Basophils % % Immature Gran # (0.00-0.04) 10*3/uL Neutrophils # (1.80-7.70) 10*3/uL Lymphocytes # (0.90-5.00) 10*3/uL Monocytes # (0.20-1.00) 10*3/uL Eosinophils # (0.04-0.35) 10*3/uL Basophils # (0.00-0.10) 10*3/uL Sodium (137-145) mmol/L Potassium (3.5-5.1) mmol/L Chloride (98-107) mmol/L Carbon Dioxide (22-30) mmol/L Anion Gap mmol/L BUN (7-17) mg/dL Creatinine (0.52-1.04) mg/dL Est GFR (CKD-EPI)AfAm (>60 ml/min/1.73 sqM) Est GFR (CKD-EPI)NonAf (>60 ml/min/1.73 sqM) Glucose (74-99) mg/dL Calcium (8.4-10.2) mg/dL Total Bilirubin (0.2-1.3) mg/dL AST (14-36) U/L ALT (4-34) U/L Alkaline Phosphatase (38-126) U/L Total Protein (6.3-8.2) g/dL Albumin (3.5-5.0) g/dL HCG, Quant mIU/mL Urine Color Urine Appearance (Clear) Urine pH (5.0-8.0) Ur Specific [place] (1.001-1.035) Urine Protein (Negative) Urine Glucose (UA) (Negative) Urine Ketones (Negative) Urine Blood (Negative) Urine Nitrite (Negative) Urine Bilirubin (Negative) Urine Urobilinogen (<2.0) mg/dL Ur Leukocyte Esterase (Negative) Urine RBC (0-5) /hpf Urine WBC (0-5) /hpf Ur Squamous Epith Cells (0-4) /hpf Urine Bacteria (None) /hpf Blood Type O Positive Blood Type Recheck O Pos Bld Type Recheck Status No - Radiology Data Radiology results: report reviewed, image reviewed Disposition Clinical Impression: Vaginal bleeding during , Nausea and vomiting during Disposition: HOME SELF-CARE Instructions (If sedation given, give patient instructions): Nausea and Vomiting in (ED), Non-Threatening First Trimester Vaginal Bleed (ED) Additional Instructions: Return to the emergency department with any new, worsening, or concerning symptoms. Take the Zofran up to every 8 hours as needed for nausea and vomiting. Make sure you are taking a vitamin. Become established with an [facility] for ongoing obstetrics care. Prescriptions: Ondansetron Odt [Zofran Odt] 4 mg PO Q8HR PRN #20 tab PRN Reason: Nausea And Vomiting Is patient prescribed a controlled substance at d/c from ED?: No Referrals: Marvin Benites MD [Primary Care Provider] - 1-2 days Time of Disposition: 02:16
[2025-03-03 22:54] LABS: Basophils # (A) 0.02 10*3/uL (0.00-0.10); Basophils % (A) 0.4 %; Eosinophils # (A) 0.12 10*3/uL (0.04-0.35); Eosinophils % (A) 2.6 %; HCT 29.9 % (37.2-46.3); HGB 10.7 g/dL (12.0-15.0); Lymphocytes # (A) 2.13 10*3/uL (0.90-5.00); Lymphocytes % (A) 45.9 %; MCHC 35.8 g/dL (32.0-37.0); MCV 89.5 fL (80.0-97.0); Mean Platelet Volume 9.5 fL (9.5-12.2); Monocytes % (A) 8.6 %; Neutrophils # (A) 1.96 10*3/uL (1.80-7.70); Neutrophils % (A) 42.3 %; Platelet Count 213 10*3/uL (140-440); RBC 3.34 10*6/uL (4.10-5.20); RDW 11.5 % (11.5-14.5); WBC 4.64 10*3/uL (4.50-10.00)
[2025-03-03 23:05] LABS: ALT 15 U/L (4-34); AST 19 U/L (14-36); African American GFR (CKD) >90 (>60 ml/min/1.73 sqM); Albumin 4.1 g/dL (3.5-5.0); Alkaline Phosphatase 79 U/L (38-126); Anion Gap 11 mmol/L; Blood Urea Nitrogen 10 mg/dL (7-17); Calcium 9.3 mg/dL (8.4-10.2); Carbon Dioxide 24 mmol/L (22-30); Chloride 99 mmol/L (98-107); Glucose 95 mg/dL (74-99); Non-African American GFR(CKD) >90 (>60 ml/min/1.73 sqM); Potassium 3.3 mmol/L (3.5-5.1); Sodium 134 mmol/L (137-145); Total Bilirubin 0.4 mg/dL (0.2-1.3); Total Protein 7.2 g/dL (6.3-8.2)
[2025-03-03 23:12] LABS: Appearance,Urine Clear (Clear); Bacteria,Urine Rare /hpf; Bilirubin,Urine Negative (Negative); Blood,Urine Small (Negative); Color,Urine Colorless; Glucose,Urine (UA) Negative (Negative); Ketones,Urine Negative (Negative); Leukocyte Esterase,Urine Negative (Negative); Nitrite,Urine Negative (Negative); PH, Urine 6.5 (5.0-8.0); Protein,Urine Negative (Negative); RBC,Urine 1 /hpf (0-5); Specific Gravity,Urine 1.001 (1.001-1.035); Squamous Epithelial Cell,Urine 1 /hpf (0-4); Urobilinogen,Urine <2.0 mg/dL (<2.0); WBC,Urine <1 /hpf (0-5)
[2025-03-03] MEDS: POTASSIUM CHLORIDE ER 20 MEQ TAB.ER PO STA (23:21)
[2025-03-03 23:47] LABS: HCG,Quantitative Serum 64113.5 mIU/mL
--- NOTE | 2025-03-04 02:03 | US ---
EXAM: US , Transabdominal and transvaginal CLINICAL HISTORY: bleeding and pain, unsure how far along. Patient states last period beginning of January. TECHNIQUE: Real-time transabdominal obstetrical ultrasound of the maternal pelvis and a first trimester . Transabdominal US was attempted but unable to visualize uterus. Transvaginal imaging was then performed. 55 images COMPARISON: No relevant prior studies available. FINDINGS: Gestation: Single live intrauterine with an estimated gestational age of 6 weeks 2 days per crown rump length measurement of 4. 63mm. Yolk sac measures about 3mm. heart rate is 122 bpm. Placenta/amniotic fluid: Cannot be adequately evaluated due to the early gestational age. Uterus/cervix: Uterus measures about 7.5 x 5.7 x 0.6cm. No myometrial mass. Ovaries: Right ovary measures about 3.5 x 1.9 x 2.0cm. 2.5 x 1.6 x 1. 7cm hypo to iso-echoic area within the right ovary on image 30, may be part of the ovarian parenchyma or may represent a complex corpus luteal cyst. Left ovary measures about 2.7 x 1.3 x 1.8cm. Dilated adnexal vessels seen bilaterally, measuring up to 6mm on the right and 8mm on the left,, can be related to or may suggest pelvic congestion syndrome in the appropriate clinical setting. Free fluid: Trace of cul-de-sac free fluid. IMPRESSION: Single live intrauterine with an estimated gestational age of 6 weeks 2 days per crown rump length measurement of 4. 63mm. BRI 10/25/2025.
[2025-03-04] MEDS: ONDANSETRON 4 MG ODT STARTER PACK 2 TAB BTL PO STA (02:19)
[2025-03-04 02:24] VITALS: BP 119/79; PULSE 79; RESP 19; TEMP 97.7
== END 2025-03-04 02:29 | disposition home or self-care (01) ==
LOC: EC 22:21
DX: O20.9 Hemorrhage in early pregnancy, unspecified (principal); O21.9 Vomiting of pregnancy, unspecified; O99.331 Smoking (tobacco) complicating pregnancy, first trimester; F17.200 Nicotine dependence, unspecified, uncomplicated; Z3A.01 Less than 8 weeks gestation of pregnancy
CPT/HCPCS: 36415; 76801; 76817; 80053; 81001; 84702; 85025; 86900; 86901; 99284